=== PATIENT | male | born 1965 | race Caucasian/White ===

== ENCOUNTER 2017-07-04 10:11 | Inpatient (IN) | payer MEDICARE ==
[2017-07-04 10:51] LABS: #Eosinphils 0.1 thou/uL (0.0-0.7); #Lymphocytes 1.5 thou/uL (1.20-3.40); #Monocytes 0.6 thou/uL (0.11-0.59); #Neutrophils 11.1 thou/uL (1.40-6.50); %Basophils 0.2 % (0.0-1.0); %Eosinophils 1.1 % (0.0-10.0); %Lymphocytes 11.5 % (21.0-51.0); %Monocytes 4.5 % (0.0-10.0); Hematocrit 50.7 % (42.0-52.0); Mean Platelet Volume 8.4 fL (7.4-10.4); Red Blood Cell (RBC) Count 5.67 mill/uL (4.70-6.10); White Blood Cell (WBC) Count 13.4 thou/uL (4.8-10.8)
[2017-07-04 11:08] LABS: ALT (SGPT) 54 U/L (8-55); AST (SGOT) 42 U/L (5-34); Alkaline Phosphatase 114 U/L (40-150); Anion Gap 17 mmol/L (10-20); BUN (Urea Nitrogen) 12 mg/dL (8.4-25.7); Bilirubin, Total 0.7 mg/dL (0.2-1.2); Calc. Creatinine Clearance 0 mL/min (70-130); Calcium 9.2 mg/dL (7.8-10.44); Carbon Dioxide 21 mmol/L (22-29); Chloride 100 mmol/L (98-107); Estimated GFR-MDRD 76; Globulin 3.2 g/dL (2.4-3.5); Protein, Total 7.3 g/dL (6.0-8.3)
--- NOTE | 2017-07-04 11:14 | RAD ---
SINGLE VIEW OF THE CHEST: COMPARISON: 08/18/16. HISTORY: Productive cough and difficulty breathing. FINDINGS: A single view of the chest shows a normal-size cardiomediastinal silhouette. Increased interstitial lung markings are present. There is no evidence of consolidation, mass, or pleural effusion. Surg ical clips are seen at the right cervicothoracic junction. IMPRESSION: No evidence of acute cardiopulmonary disease. POS: [facility]
[2017-07-04] MEDS ORDERED: methylPREDNISolone Sod Succ/PF 125 MG/2 ML VIAL ONE (12:59)
[2017-07-04] MEDS ORDERED: ISOVUE-370 76%-LOCM 1 ML ONE (14:22)
--- NOTE | 2017-07-04 14:50 | CT ---
CT ARTERIOGRAM CHEST WITH IV CONTRAST AND 3D MIP IMAGING: HISTORY: Dyspnea. COMPARISON: 08/18/16. FINDINGS: There is good contrast opacification of pulmonary arteries with normal branching of the great vessel s from the aortic arch. Old bilateral rib fractures are again demonstrated. There are scattered ti ny nonspecific subpleural nodules within each lung that have developed since the prior study. No so lid nodules are greater than 3 mm greatest diameter. Mild scarring is present at the right lung bas e. No mediastinal adenopathy is visible. Azygous fissure is again demonstrated. Within the partia lly visualized upper abdomen, tiny low-density lesion along the lateral margin of the body of the le ft adrenal gland is stable. Diverticulum projecting posteriorly from the stomach is also unchanged in appearance. IMPRESSION: 1. No CT evidence of pulmonary embolus. 2. Interval development of multiple scattered tiny nonspecific subpleural parenchymal nodules. Ple ase consider followup CT chest in 6 months to evaluate for stability. POS: [facility]
[2017-07-04] MEDS ORDERED: Gabapentin 300 MG CAP PO SCH (15:15)
[2017-07-04 15:28] LABS: Troponin I Less than 0.010 ng/mL (< 0.028)
[2017-07-04] MEDS ORDERED: Azithromycin 500 MG VIAL ONE (15:44)
[2017-07-04 16:51] LABS: Troponin I Less than 0.010 ng/mL (< 0.028)
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
[2017-07-04] MEDS ORDERED: Ondansetron HCl/PF 4 MG/2 ML Vial IVP PRN ×2 (18:31→18:50)
[2017-07-04] MEDS ORDERED: Acetaminophen 325 MG TAB PO PRN (18:50)
[2017-07-04] MEDS ORDERED: Ondansetron ODT 4 MG TAB SL PRN (18:50)
[2017-07-04 19:04] LABS: Troponin I Less than 0.010 ng/mL (< 0.028)
[2017-07-04] MEDS ORDERED: guaiFENesin ER 600 MG TAB PO SCH ×2 (21:00→22:00)
[2017-07-04] MEDS ORDERED: Dextrose 50% Abboject 50 ML SYRINGE SLOW IVP PRN (21:24)
[2017-07-04] MEDS ORDERED: Dextrose 5% in Water 1,000 ML IV PRN ×2 (21:24→21:47)
[2017-07-04] MEDS ORDERED: Insulin Detemir 100 UNITS/ML 40 UNITS in Pre-Filled Syringe 1 EACH SC SCH ×2 (21:30→22:00)
[2017-07-04] MEDS ORDERED: Lorazepam 0.5 MG TAB PO SCH ×2 (21:30→21:45)
[2017-07-04] MEDS ORDERED: Albuterol Sulfate 2.5 mg/3 ml Neb NEB PRN (21:46)
[2017-07-04] MEDS ORDERED: Insulin Regular 300 UNITS/3 ML VIAL SC PRN ×2 (21:47)
[2017-07-04] MEDS ORDERED: Dextrose 50% Abboject 50 ML SYRINGE IVP PRN (21:47)
[2017-07-04 21:54] VITALS: BMI 35.7
[2017-07-04] MEDS: Nicotine 21 MG PATCH TOP SCH (22:17)
[2017-07-05] MEDS: methylPREDNISolone Sod Succ/PF 125 MG/2 ML VIAL IVP SCH ×2 (00:19→00:20)
[2017-07-05] MEDS: Albuterol Sulfate 2.5 mg/3 ml Neb NEB PRN (01:34)
[2017-07-05 05:14] LABS: #Basophils 0.1 thou/uL (0.0-0.2); #Eosinphils 0.1 thou/uL (0.0-0.7); #Monocytes 0.3 thou/uL (0.11-0.59); %Basophils 0.6 % (0.0-1.0); %Eosinophils 0.3 % (0.0-10.0); %Lymphocytes 6.2 % (21.0-51.0); %Monocytes 1.9 % (0.0-10.0); Mean Platelet Volume 8.9 fL (7.4-10.4); Red Blood Cell (RBC) Count 5.44 mill/uL (4.70-6.10); White Blood Cell (WBC) Count 15.4 thou/uL (4.8-10.8)
[2017-07-05] MEDS: Insulin Regular 300 UNITS/3 ML VIAL SC PRN ×4 (05:28→20:42)
[2017-07-05 05:29] LABS: Anion Gap 19 mmol/L (10-20); BUN (Urea Nitrogen) 17 mg/dL (8.4-25.7); Calc. Creatinine Clearance 119 mL/min (70-130); Calcium 10.1 mg/dL (7.8-10.44); Carbon Dioxide 17 mmol/L (22-29); Chloride 99 mmol/L (98-107); Estimated GFR-MDRD 63; Magnesium 1.9 mg/dL (1.6-2.6)
[2017-07-05] MEDS ORDERED: Non-Formulary Item 1 EACH (Metformin Hcl [Metformin Hcl] 1,000 MG) PO SCH (08:00)
[2017-07-05] MEDS: Aspirin 81 mg Enteric Coated Tablet PO SCH (08:53)
[2017-07-05] MEDS: guaiFENesin ER 600 MG TAB PO SCH ×2 (08:53→20:40)
[2017-07-05] MEDS: Gabapentin 300 MG CAP PO SCH ×2 (08:53→14:37)
[2017-07-05] MEDS: Ascorbic Acid 500 mg Chewable Tablet PO SCH (08:54)
[2017-07-05] MEDS: Enoxaparin Sodium 40 MG/0.4 ML SYRINGE SC SCH (08:55)
[2017-07-05] MEDS ORDERED: Non-Formulary Item 1 EACH (Budesonide-Formoterol [Symbicort 160-4.5] 2 PUFF) INH SCH (09:00)
--- NOTE | 2017-07-05 09:25 | RAD ---
TWO VIEWS CHEST: Comparison: 08-20-16 History: Fever, sepsis. COPD exacerbation. FINDINGS: Two views of the chest shows a normal sized cardiomediastinal silhouette. There is opacity in the ri ght lung base which likely represents a pleural effusion and adjacent atelectasis. Surgical clips ar e seen at the right cervicothoracic junction. IMPRESSION: Small right pleural effusion with adjacent atelectasis. POS: [facility]
[2017-07-05] MEDS: Insulin Detemir 100 UNITS/ML 50 UNITS in Pre-Filled Syringe 1 EACH SC SCH ×2 (10:39→20:41)
--- NOTE | 2017-07-05 13:30 | PDOC.PN ---
- Subjective Encounter Start Date: 07/05/17 Encounter Start Time: 09:30 Subjective: breathing better, but still has sob - Objective MAR Reviewed: Yes Vital Signs & Weight: Vital Signs (12 hours) Temp Pulse Resp BP BP Pulse Ox 07/05/17 11:34 97.5 F L 109 H 18 145/76 H 95 07/05/17 08:54 111 H 150/78 H 07/05/17 07:42 97.6 F 111 H 16 150/78 H 95 07/05/17 05:39 98.2 F 113 H 20 147/90 H 94 L 07/05/17 01:52 98.0 F 115 H 18 117/75 91 L 07/05/17 01:34 115 H 18 91 L Weight Weight 263 lb 7.238 oz Result Diagrams: 07/05/17 04:22 07/05/17 04:22 Additional Labs: Accuchecks 07/05/17 07/05/17 07/04/17 11:36 03:51 20:37 POC Glucose 311 H 419 H 502 H Phys Exam - Physical Examination HEENT: PERRLA, moist MMs Neck: no JVD, supple Respiratory: no rales, wheezing present Cardiovascular: RRR, no significant murmur, no rub Gastrointestinal: soft, non-tender, positive bowel sounds Musculoskeletal: no edema, pulses present Neurological: non-focal, moves all 4 limbs Psychiatric: A&O x 3 Dx/Plan (1) COPD (chronic obstructive pulmonary disease) Status: Acute Qualifiers: COPD type: COPD with acute exacerbation (2) Acute respiratory failure with hypoxia Code(s): J96.01 - ACUTE RESPIRATORY FAILURE WITH HYPOXIA Status: Resolved (3) DM type 2 (diabetes mellitus, type 2) Status: Chronic Qualifiers: Diabetes mellitus complication status: with hyperglycemia Diabetes mellitus adjunct faculty for medical terminology insulin use: with halfway use Qualified Code(s): E11.65 - Type 2 diabetes mellitus with hyperglycemia; Z79.4 - snf (current) use of insulin (4) HTN (hypertension) Code(s): I10 - ESSENTIAL (PRIMARY) HYPERTENSION Status: Chronic Qualifiers: Hypertension type: essential hypertension (5) Obesity Code(s): E66.9 - OBESITY, UNSPECIFIED Status: Chronic Qualifiers: Body mass index: BMI 35.0-35.9 - Plan is on solumedrol and duoneb -: empiric levaquin -: on home dose of levemir with metformin -: will rapidly taper steroids with uncontrolled dm -: ekg shows sinus tach * . Review of Systems - Medications/Allergies Allergies/Adverse Reactions: Allergies Allergy/AdvReac Type Severity Reaction Status Date / Time lisinopril Allergy Severe angioedema Verified 08/19/16 03:17 Medications: Current Medications Albuterol Sulfate (Ventolin) 2.5 mg NEB Q2H PRN PRN Reason: Wheezing Last Admin: 07/05/17 01:34 Dose: 2.5 mg Albuterol/Ipratropium (Duoneb) 3 ml NEB [id number] [facility] Amlodipine Besylate (Norvasc) 5 mg PO DAILY [facility] Last Admin: 07/05/17 08:54 Dose: 5 mg Ascorbic Acid (Vitamin C) 500 mg PO DAILY [facility] Last Admin: 07/05/17 08:54 Dose: 500 mg Aspirin (Ecotrin) 81 mg PO DAILY [facility] Last Admin: 07/05/17 08:53 Dose: 81 mg Dextrose/Water (Dextrose 50%) 25 gm SLOW IVP PRN PRN PRN Reason: Hypoglycemia Enoxaparin Sodium (Lovenox) 40 mg SC 0900 [facility] Last Admin: 07/05/17 08:55 Dose: 40 mg Gabapentin (Neurontin) 600 mg PO TID [facility] Last Admin: 07/05/17 08:53 Dose: 600 mg Glucagon (Glucagon) 1 mg IM PRN PRN PRN Reason: Hypoglycemia Guaifenesin (Mucinex) 1,200 mg PO Q12HR [facility] Last Admin: 07/05/17 08:53 Dose: 1,200 mg Levofloxacin 750 mg/ Device 150 mls @ 100 mls/hr IVPB Q24HR [facility] Last Admin: 07/05/17 00:53 Dose: 150 mls Dextrose/Water (D5w) 1,000 mls @ 0 mls/hr IV .Q0M PRN; As Directed PRN Reason: Hypoglycemia Insulin Detemir 50 units/ (Miscellaneous Medication) 0.5 mls @ 0 mls/hr SC BID [facility] Last Admin: 07/05/17 10:39 Dose: 0.5 mls Insulin Human Regular (Humulin R) 0 units SC .MODERATE SLIDING SC PRN PRN Reason: Moderate Correctional Scale Last Admin: 07/05/17 12:35 Dose: 8 unit Insulin Human Regular (Humulin R) 0 units SC .BEDTIME SLIDING SC PRN PRN Reason: Bedtime Correctional Scale Last Admin: 07/05/17 05:28 Dose: 10 unit Lorazepam (Ativan) 1 mg PO HS [facility] Metformin HCl (Glucophage) 1,000 mg PO BID-WM [facility] Last Admin: 07/05/17 08:54 Dose: 1,000 mg Methylprednisolone Sodium Succinate (Solu-Medrol) 20 mg IVP Q8HR [facility] Metoprolol Succinate (Toprol Xl) 25 mg PO DAILY [facility] Last Admin: 07/05/17 08:54 Dose: 25 mg Mometasone Furoate/Formoterol Fumar (Dulera 200 Mcg/5 Mcg Inhaler) 2 puff INH BID-RT [facility] Nicotine (Nicoderm Patch) 21 mg TOP Q24HR [facility] Last Admin: 07/04/17 22:17 Dose: 21 mg Ondansetron HCl (Zofran) 4 mg IVP Q6H PRN PRN Reason: Nausea/Vomiting Sodium Chloride (Flush - Normal Saline) 10 ml IVF Q12HR [facility] Last Admin: 07/05/17 08:55 Dose: 10 ml Sodium Chloride (Flush - Normal Saline) 10 ml IVF PRN PRN PRN Reason: Saline Flush
[2017-07-05] MEDS: Mometasone/Formoterol 120 PUFF INHALER INH SCH (19:19)
[2017-07-05] MEDS: Nicotine 21 MG PATCH TOP SCH (20:39)
[2017-07-05] MEDS: Lorazepam 1 MG TAB PO SCH (20:40)
[2017-07-05] MEDS: Gabapentin 400 MG CAP PO SCH (20:40)
[2017-07-05] MEDS ORDERED: ALPRAZolam 0.25 MG TAB PO SCH (23:15)
[2017-07-06] MEDS: Insulin Regular 300 UNITS/3 ML VIAL SC PRN ×4 (05:46→20:48)
[2017-07-06] MEDS: Mometasone/Formoterol 120 PUFF INHALER INH SCH ×2 (05:49→19:45)
[2017-07-06] MEDS ORDERED: predniSONE 20 MG TAB PO SCH (08:30)
[2017-07-06] MEDS: Aspirin 81 mg Enteric Coated Tablet PO SCH (10:57)
[2017-07-06] MEDS: Ascorbic Acid 500 mg Chewable Tablet PO SCH (10:58)
[2017-07-06] MEDS: Gabapentin 300 MG CAP PO SCH ×2 (10:58→17:06)
[2017-07-06] MEDS: Enoxaparin Sodium 40 MG/0.4 ML SYRINGE SC SCH (10:59)
[2017-07-06] MEDS: guaiFENesin ER 600 MG TAB PO SCH ×2 (10:59→20:47)
[2017-07-06] MEDS: Insulin Detemir 100 UNITS/ML 50 UNITS in Pre-Filled Syringe 1 EACH SC SCH ×2 (11:04→20:47)
--- NOTE | 2017-07-06 15:29 | PDOC.PN ---
- Subjective Encounter Start Date: 07/06/17 Encounter Start Time: 11:00 Subjective: breathing better - Objective MAR Reviewed: Yes Vital Signs & Weight: Vital Signs (12 hours) Temp Pulse Resp BP Pulse Ox 07/06/17 13:29 102 H 18 94 L 07/06/17 11:43 97.9 F 107 H 16 113/60 07/06/17 09:43 98 20 94 L 07/06/17 08:00 97.5 F L 98 20 07/06/17 07:41 97.5 F L 98 18 151/71 H 95 07/06/17 05:49 101 H 18 94 L 07/06/17 05:48 101 H 18 94 L Weight Weight 263 lb 7.238 oz I&O: 07/05/17 07/06/17 07/07/17 06:59 06:59 06:59 Intake Total 1240 Output Total 350 Balance 890 Result Diagrams: 07/05/17 04:22 07/05/17 04:22 Additional Labs: Accuchecks 07/06/17 07/06/17 07/05/17 11:43 05:31 20:40 POC Glucose 317 H 272 H 389 H 07/05/17 16:51 POC Glucose 373 H Phys Exam - Physical Examination HEENT: PERRLA, moist MMs Neck: no JVD, supple Respiratory: no wheezing, no rales rhonhci++ Cardiovascular: RRR, no significant murmur Gastrointestinal: soft, non-tender, positive bowel sounds Musculoskeletal: no edema, pulses present Neurological: non-focal, moves all 4 limbs Psychiatric: A&O x 3 Dx/Plan (1) COPD (chronic obstructive pulmonary disease) Status: Acute Qualifiers: COPD type: COPD with acute exacerbation (2) Acute respiratory failure with hypoxia Code(s): J96.01 - ACUTE RESPIRATORY FAILURE WITH HYPOXIA Status: Resolved (3) DM type 2 (diabetes mellitus, type 2) Status: Chronic Qualifiers: Diabetes mellitus complication status: with hyperglycemia Diabetes mellitus intermediate insulin use: with rat exterminator use Qualified Code(s): E11.65 - Type 2 diabetes mellitus with hyperglycemia; Z79.4 - nursing home (current) use of insulin (4) HTN (hypertension) Code(s): I10 - ESSENTIAL (PRIMARY) HYPERTENSION Status: Chronic Qualifiers: Hypertension type: essential hypertension (5) Obesity Code(s): E66.9 - OBESITY, UNSPECIFIED Status: Chronic Qualifiers: Body mass index: BMI 35.0-35.9 - Plan 1/2 blood cs staph likely contaminant, will await full cs -: is on prednisone, duonebs and empiric levaquin -: echo was done today, await results -: to amb in hallway as tolerated -: copd flare up is slowly resolving * . Review of Systems - Medications/Allergies Allergies/Adverse Reactions: Allergies Allergy/AdvReac Type Severity Reaction Status Date / Time lisinopril Allergy Severe angioedema Verified 08/19/16 03:17 Medications: Current Medications Albuterol Sulfate (Ventolin) 2.5 mg NEB Q2H PRN PRN Reason: Wheezing Last Admin: 07/05/17 01:34 Dose: 2.5 mg Albuterol/Ipratropium (Duoneb) 3 ml NEB [id number] [facility] Last Admin: 07/06/17 13:29 Dose: 3 ml Amlodipine Besylate (Norvasc) 5 mg PO DAILY [facility] Last Admin: 07/06/17 10:58 Dose: 5 mg Ascorbic Acid (Vitamin C) 500 mg PO DAILY [facility] Last Admin: 07/06/17 10:58 Dose: 500 mg Aspirin (Ecotrin) 81 mg PO DAILY [facility] Last Admin: 07/06/17 10:57 Dose: 81 mg Dextrose/Water (Dextrose 50%) 25 gm SLOW IVP PRN PRN PRN Reason: Hypoglycemia Enoxaparin Sodium (Lovenox) 40 mg SC 0900 [facility] Last Admin: 07/06/17 10:59 Dose: 40 mg Gabapentin (Neurontin) 1,200 mg PO HS [facility] Last Admin: 07/05/17 20:40 Dose: 1,200 mg Gabapentin (Neurontin) 600 mg PO 0900,1500 [facility] Last Admin: 07/06/17 10:58 Dose: 600 mg Glucagon (Glucagon) 1 mg IM PRN PRN PRN Reason: Hypoglycemia Guaifenesin (Mucinex) 1,200 mg PO Q12HR [facility] Last Admin: 07/06/17 10:59 Dose: 1,200 mg Levofloxacin 750 mg/ Device 150 mls @ 100 mls/hr IVPB Q24HR [facility] Last Admin: 07/06/17 00:02 Dose: 150 mls Dextrose/Water (D5w) 1,000 mls @ 0 mls/hr IV .Q0M PRN; As Directed PRN Reason: Hypoglycemia Insulin Detemir 50 units/ (Miscellaneous Medication) 0.5 mls @ 0 mls/hr SC BID [facility] Last Admin: 07/06/17 11:04 Dose: 0.5 mls Insulin Human Regular (Humulin R) 0 units SC .MODERATE SLIDING SC PRN PRN Reason: Moderate Correctional Scale Last Admin: 07/06/17 13:30 Dose: 8 unit Insulin Human Regular (Humulin R) 0 units SC .BEDTIME SLIDING SC PRN PRN Reason: Bedtime Correctional Scale Last Admin: 07/05/17 20:42 Dose: 5 unit Lorazepam (Ativan) 1 mg PO HS [facility] Last Admin: 07/05/17 20:40 Dose: 1 mg Metformin HCl (Glucophage) 1,000 mg PO BID-[facility] Last Admin: 07/06/17 10:57 Dose: 1,000 mg Metoprolol Succinate (Toprol Xl) 25 mg PO DAILY [facility] Last Admin: 07/06/17 10:57 Dose: 25 mg Mometasone Furoate/Formoterol Fumar (Dulera 200 Mcg/5 Mcg Inhaler) 2 puff INH BID-RT [facility] Last Admin: 07/06/17 05:49 Dose: 2 puff Nicotine (Nicoderm Patch) 21 mg TOP Q24HR [facility] Last Admin: 07/05/17 20:39 Dose: Not Given Ondansetron HCl (Zofran) 4 mg IVP Q6H PRN PRN Reason: Nausea/Vomiting Prednisone (Prednisone) 40 mg PO QAM-WM [facility] Sodium Chloride (Flush - Normal Saline) 10 ml IVF Q12HR [facility] Last Admin: 07/05/17 20:41 Dose: 10 ml Sodium Chloride (Flush - Normal Saline) 10 ml IVF PRN PRN PRN Reason: Saline Flush
[2017-07-06] MEDS: Nicotine 21 MG PATCH TOP SCH (19:33)
[2017-07-06] MEDS: Lorazepam 1 MG TAB PO SCH (20:47)
[2017-07-06] MEDS: Gabapentin 400 MG CAP PO SCH (20:47)
[2017-07-07] MEDS: Insulin Regular 300 UNITS/3 ML VIAL SC PRN ×3 (05:02→17:21)
[2017-07-07] MEDS: Mometasone/Formoterol 120 PUFF INHALER INH SCH ×2 (06:22→18:56)
[2017-07-07] MEDS ORDERED: predniSONE 20 MG TAB PO SCH (08:00)
[2017-07-07] MEDS: Ascorbic Acid 500 mg Chewable Tablet PO SCH (08:10)
[2017-07-07] MEDS: Gabapentin 300 MG CAP PO SCH ×2 (08:11→16:34)
[2017-07-07] MEDS: Aspirin 81 mg Enteric Coated Tablet PO SCH (08:11)
[2017-07-07] MEDS: Enoxaparin Sodium 40 MG/0.4 ML SYRINGE SC SCH (08:12)
[2017-07-07] MEDS: guaiFENesin ER 600 MG TAB PO SCH ×2 (08:12→19:39)
[2017-07-07] MEDS: Insulin Detemir 100 UNITS/ML 50 UNITS in Pre-Filled Syringe 1 EACH SC SCH ×2 (08:20→19:40)
--- NOTE | 2017-07-07 09:05 | EKG ---
Test Reason : PREOP Blood Pressure : / mmHG Vent. Rate : 095 BPM Atrial Rate : 095 BPM P-R Int : 168 ms QRS Dur : 094 ms QT Int : 358 ms P-R-T Axes : 059 040 031 degrees QTc Int : 449 ms Normal sinus rhythm Normal ECG When compared with ECG of 04-JUL-2017 15:24, (Unconfirmed) Nonspecific T wave abnormality now evident in Inferior leads Confirmed by ANAID SYLVESTER ([id number]) on 07/07/2017 9:04:48 AM Referred By: SON Confirmed By:ANAID SYLVESTER
--- NOTE | 2017-07-07 15:48 | PDOC.PN ---
- Subjective Encounter Start Date: 07/07/17 Encounter Start Time: 10:10 Subjective: breathing better, still has some wheezing off and on -: no chest pain or palp - Objective MAR Reviewed: Yes Vital Signs & Weight: Vital Signs (12 hours) Temp Pulse Resp BP Pulse Ox 07/07/17 14:24 107 H 24 H 07/07/17 10:04 102 H 16 07/07/17 08:59 98.3 F 107 H 20 148/87 H 93 L 07/07/17 08:11 102 H 07/07/17 08:00 98.3 F 107 H 20 93 L 07/07/17 06:22 102 H 16 07/07/17 06:15 91 L 07/07/17 06:12 102 H 16 07/07/17 04:48 101 H 93 L Weight Weight 263 lb 7.238 oz I&O: 07/06/17 07/07/17 07/08/17 06:59 06:59 06:59 Intake Total 1240 960 Output Total 350 2500 Balance 890 -2500 960 Result Diagrams: 07/05/17 04:22 07/05/17 04:22 Additional Labs: Accuchecks 07/07/17 07/07/17 07/06/17 11:16 04:47 20:33 POC Glucose 199 H 192 H 302 H 07/06/17 16:17 POC Glucose 451 H Phys Exam - Physical Examination HEENT: PERRLA, moist MMs Neck: no JVD, supple Respiratory: no rales, wheezing present Cardiovascular: RRR, no significant murmur Gastrointestinal: soft, non-tender, positive bowel sounds Musculoskeletal: no edema, pulses present Neurological: non-focal, moves all 4 limbs Psychiatric: A&O x 3 Dx/Plan (1) COPD (chronic obstructive pulmonary disease) Status: Acute Qualifiers: COPD type: COPD with acute exacerbation (2) Acute respiratory failure with hypoxia Code(s): J96.01 - ACUTE RESPIRATORY FAILURE WITH HYPOXIA Status: Resolved (3) DM type 2 (diabetes mellitus, type 2) Status: Chronic Qualifiers: Diabetes mellitus complication status: with hyperglycemia Diabetes mellitus long term acute care registered nurse insulin use: with usp use Qualified Code(s): E11.65 - Type 2 diabetes mellitus with hyperglycemia; Z79.4 - terminal makeup operator (current) use of insulin (4) HTN (hypertension) Code(s): I10 - ESSENTIAL (PRIMARY) HYPERTENSION Status: Chronic Qualifiers: Hypertension type: essential hypertension (5) Obesity Code(s): E66.9 - OBESITY, UNSPECIFIED Status: Chronic Qualifiers: Body mass index: BMI 35.0-35.9 - Plan is slowly improving -: possible dc plan in am -: reduce steroids, dm uncontrolled sec to steroids -: oob to chair and mobilize with prosthesis -: echo shows good EF * . Review of Systems - Medications/Allergies Allergies/Adverse Reactions: Allergies Allergy/AdvReac Type Severity Reaction Status Date / Time lisinopril Allergy Severe angioedema Verified 08/19/16 03:17 Medications: Current Medications Albuterol Sulfate (Ventolin) 2.5 mg NEB Q2H PRN PRN Reason: Wheezing Last Admin: 07/05/17 01:34 Dose: 2.5 mg Albuterol/Ipratropium (Duoneb) 3 ml NEB [id number] [facility] Last Admin: 07/07/17 14:24 Dose: 3 ml Amlodipine Besylate (Norvasc) 5 mg PO DAILY [facility] Last Admin: 07/07/17 08:11 Dose: 5 mg Ascorbic Acid (Vitamin C) 500 mg PO DAILY [facility] Last Admin: 07/07/17 08:10 Dose: 500 mg Aspirin (Ecotrin) 81 mg PO DAILY [facility] Last Admin: 07/07/17 08:11 Dose: 81 mg Dextrose/Water (Dextrose 50%) 25 gm SLOW IVP PRN PRN PRN Reason: Hypoglycemia Enoxaparin Sodium (Lovenox) 40 mg SC 0900 [facility] Last Admin: 07/07/17 08:12 Dose: 40 mg Gabapentin (Neurontin) 1,200 mg PO HS [facility] Last Admin: 07/06/17 20:47 Dose: 1,200 mg Gabapentin (Neurontin) 600 mg PO 0900,1500 [facility] Last Admin: 07/07/17 08:11 Dose: 600 mg Glucagon (Glucagon) 1 mg IM PRN PRN PRN Reason: Hypoglycemia Guaifenesin (Mucinex) 1,200 mg PO Q12HR [facility] Last Admin: 07/07/17 08:12 Dose: 1,200 mg Dextrose/Water (D5w) 1,000 mls @ 0 mls/hr IV .Q0M PRN; As Directed PRN Reason: Hypoglycemia Insulin Detemir 50 units/ (Miscellaneous Medication) 0.5 mls @ 0 mls/hr SC BID [facility] Last Admin: 07/07/17 08:20 Dose: 0.5 mls Insulin Human Regular (Humulin R) 0 units SC .MODERATE SLIDING SC PRN PRN Reason: Moderate Correctional Scale Last Admin: 07/07/17 13:09 Dose: 2 unit Insulin Human Regular (Humulin R) 0 units SC .BEDTIME SLIDING SC PRN PRN Reason: Bedtime Correctional Scale Last Admin: 07/06/17 20:48 Dose: 4 unit Levofloxacin (Levaquin) 500 mg PO 0600 [facility] Lorazepam (Ativan) 1 mg PO HS [facility] Last Admin: 07/06/17 20:47 Dose: 1 mg Metformin HCl (Glucophage) 1,000 mg PO BID-WM [facility] Last Admin: 07/07/17 08:11 Dose: 1,000 mg Metoprolol Succinate (Toprol Xl) 25 mg PO DAILY [facility] Last Admin: 07/07/17 08:11 Dose: 25 mg Mometasone Furoate/Formoterol Fumar (Dulera 200 Mcg/5 Mcg Inhaler) 2 puff INH BID-RT [facility] Last Admin: 07/07/17 06:22 Dose: 2 puff Nicotine (Nicoderm Patch) 21 mg TOP Q24HR [facility] Last Admin: 07/06/17 19:33 Dose: Not Given Ondansetron HCl (Zofran) 4 mg IVP Q6H PRN PRN Reason: Nausea/Vomiting Prednisone (Prednisone) 20 mg PO QAM-WM [facility] Sodium Chloride (Flush - Normal Saline) 10 ml IVF Q12HR [facility] Last Admin: 07/07/17 08:12 Dose: 10 ml Sodium Chloride (Flush - Normal Saline) 10 ml IVF PRN PRN PRN Reason: Saline Flush
[2017-07-07] MEDS ORDERED: Senokot 8.6 MG TAB PO PRN (17:21)
[2017-07-07] MEDS ORDERED: Milk Of Magnesia 30 ML UDCUP PO PRN (17:21)
[2017-07-07] MEDS: Lorazepam 1 MG TAB PO SCH (19:39)
[2017-07-07] MEDS: Gabapentin 400 MG CAP PO SCH (19:39)
[2017-07-07] MEDS: Nicotine 21 MG PATCH TOP SCH (19:41)
[2017-07-07] MEDS ORDERED: PROVENTIL INHALER 6.7 G (200 INHALATIONS) INH PRN (19:58)
[2017-07-07] MEDS: Albuterol Sulfate 2.5 mg/3 ml Neb NEB PRN (23:41)
[2017-07-08] MEDS: Insulin Regular 300 UNITS/3 ML VIAL SC PRN ×2 (05:32→15:59)
[2017-07-08] MEDS: Mometasone/Formoterol 120 PUFF INHALER INH SCH ×2 (06:31→18:35)
[2017-07-08] MEDS: Aspirin 81 mg Enteric Coated Tablet PO SCH (08:49)
[2017-07-08] MEDS: guaiFENesin ER 600 MG TAB PO SCH ×2 (08:49→21:08)
[2017-07-08] MEDS: predniSONE 20 MG TAB PO SCH (08:49)
[2017-07-08] MEDS: Gabapentin 300 MG CAP PO SCH ×2 (08:49→16:01)
[2017-07-08] MEDS: Ascorbic Acid 500 mg Chewable Tablet PO SCH (08:50)
[2017-07-08] MEDS: Insulin Detemir 100 UNITS/ML 50 UNITS in Pre-Filled Syringe 1 EACH SC SCH ×2 (08:50→21:08)
[2017-07-08] MEDS: Enoxaparin Sodium 40 MG/0.4 ML SYRINGE SC SCH (08:50)
--- NOTE | 2017-07-08 14:54 | PDOC.PN ---
- Subjective Encounter Start Date: 07/08/17 Encounter Start Time: 10:10 Subjective: breathing better - Objective MAR Reviewed: Yes Vital Signs & Weight: Vital Signs (12 hours) Temp Pulse Resp BP BP Pulse Ox 07/08/17 14:47 96 20 92 L 07/08/17 08:49 94 125/79 07/08/17 08:00 98.1 F 94 22 H 125/79 92 L 07/08/17 06:29 102 H 20 92 L Weight Weight 263 lb 7.238 oz I&O: 07/07/17 07/08/17 07/09/17 06:59 06:59 06:59 Intake Total 2940 Output Total 2500 1800 Balance -2500 1140 Result Diagrams: 07/05/17 04:22 07/05/17 04:22 Additional Labs: Accuchecks 07/08/17 07/08/17 07/07/17 10:57 04:19 19:47 POC Glucose 181 H 197 H 314 H 07/07/17 16:58 POC Glucose 355 H Phys Exam - Physical Examination HEENT: PERRLA, moist MMs Neck: no JVD, supple Respiratory: no wheezing, no rales rhonchi+ Cardiovascular: RRR, no significant murmur Gastrointestinal: soft, non-tender, positive bowel sounds Musculoskeletal: no edema, pulses present Neurological: non-focal, moves all 4 limbs Psychiatric: A&O x 3 Dx/Plan (1) COPD (chronic obstructive pulmonary disease) Status: Acute Qualifiers: COPD type: COPD with acute exacerbation (2) Acute respiratory failure with hypoxia Code(s): J96.01 - ACUTE RESPIRATORY FAILURE WITH HYPOXIA Status: Resolved (3) DM type 2 (diabetes mellitus, type 2) Status: Chronic Qualifiers: Diabetes mellitus complication status: with hyperglycemia Diabetes mellitus terminal gauger insulin use: with half-way use Qualified Code(s): E11.65 - Type 2 diabetes mellitus with hyperglycemia; Z79.4 - continuous churn buttermaker (current) use of insulin (4) HTN (hypertension) Code(s): I10 - ESSENTIAL (PRIMARY) HYPERTENSION Status: Chronic Qualifiers: Hypertension type: essential hypertension (5) Obesity Code(s): E66.9 - OBESITY, UNSPECIFIED Status: Chronic Qualifiers: Body mass index: BMI 35.0-35.9 - Plan on duonebs, steroids and empiric antibiotics -: dc pt home in am -: he is amb with his prosthesis * . Review of Systems - Medications/Allergies Allergies/Adverse Reactions: Allergies Allergy/AdvReac Type Severity Reaction Status Date / Time lisinopril Allergy Severe angioedema Verified 08/19/16 03:17 Medications: Current Medications Albuterol Sulfate (Ventolin) 2.5 mg NEB Q2H PRN PRN Reason: Wheezing Last Admin: 07/07/17 23:41 Dose: 2.5 mg Albuterol Sulfate (Proventil Hfa) 2 puff INH Q2H PRN PRN Reason: SOB or Anxiety Albuterol/Ipratropium (Duoneb) 3 ml NEB [id number] [facility] Last Admin: 07/08/17 14:47 Dose: 3 ml Amlodipine Besylate (Norvasc) 5 mg PO DAILY [facility] Last Admin: 07/08/17 08:49 Dose: 5 mg Ascorbic Acid (Vitamin C) 500 mg PO DAILY [facility] Last Admin: 07/08/17 08:50 Dose: 500 mg Aspirin (Ecotrin) 81 mg PO DAILY [facility] Last Admin: 07/08/17 08:49 Dose: 81 mg Dextrose/Water (Dextrose 50%) 25 gm SLOW IVP PRN PRN PRN Reason: Hypoglycemia Enoxaparin Sodium (Lovenox) 40 mg SC 0900 [facility] Last Admin: 07/08/17 08:50 Dose: 40 mg Gabapentin (Neurontin) 1,200 mg PO HS [facility] Last Admin: 07/07/17 19:39 Dose: 1,200 mg Gabapentin (Neurontin) 600 mg PO 0900,1500 [facility] Last Admin: 07/08/17 08:49 Dose: 600 mg Glucagon (Glucagon) 1 mg IM PRN PRN PRN Reason: Hypoglycemia Guaifenesin (Mucinex) 1,200 mg PO Q12HR [facility] Last Admin: 07/08/17 08:49 Dose: 1,200 mg Dextrose/Water (D5w) 1,000 mls @ 0 mls/hr IV .Q0M PRN; As Directed PRN Reason: Hypoglycemia Insulin Detemir 50 units/ (Miscellaneous Medication) 0.5 mls @ 0 mls/hr SC BID [facility] Last Admin: 07/08/17 08:50 Dose: 0.5 mls Insulin Human Regular (Humulin R) 0 units SC .MODERATE SLIDING SC PRN PRN Reason: Moderate Correctional Scale Last Admin: 07/08/17 05:32 Dose: 2 unit Insulin Human Regular (Humulin R) 0 units SC .BEDTIME SLIDING SC PRN PRN Reason: Bedtime Correctional Scale Last Admin: 07/06/17 20:48 Dose: 4 unit Levofloxacin (Levaquin) 500 mg PO 0600 [facility] Last Admin: 07/08/17 05:31 Dose: 500 mg Lorazepam (Ativan) 1 mg PO HS [facility] Last Admin: 07/07/17 19:39 Dose: 1 mg Magnesium Hydroxide (Milk Of Magnesium) 30 ml PO DAILYPRN PRN PRN Reason: Constipation Metformin HCl (Glucophage) 1,000 mg PO BID-WM [facility] Last Admin: 07/08/17 08:49 Dose: 1,000 mg Metoprolol Succinate (Toprol Xl) 25 mg PO DAILY [facility] Last Admin: 07/08/17 08:49 Dose: 25 mg Mometasone Furoate/Formoterol Fumar (Dulera 200 Mcg/5 Mcg Inhaler) 2 puff INH BID-RT [facility] Last Admin: 07/08/17 06:31 Dose: 2 puff Nicotine (Nicoderm Patch) 21 mg TOP Q24HR [facility] Last Admin: 07/07/17 19:41 Dose: Not Given Ondansetron HCl (Zofran) 4 mg IVP Q6H PRN PRN Reason: Nausea/Vomiting Prednisone (Prednisone) 20 mg PO QAM-WM [facility] Last Admin: 07/08/17 08:49 Dose: 20 mg Senna (Senokot) 2 tab PO HS PRN PRN Reason: Constipation Sodium Chloride (Flush - Normal Saline) 10 ml IVF Q12HR [facility] Last Admin: 07/08/17 08:56 Dose: 10 ml Sodium Chloride (Flush - Normal Saline) 10 ml IVF PRN PRN PRN Reason: Saline Flush
[2017-07-08] MEDS: Lorazepam 1 MG TAB PO SCH (21:08)
[2017-07-08] MEDS: Gabapentin 400 MG CAP PO SCH (21:08)
[2017-07-08] MEDS: Nicotine 21 MG PATCH TOP SCH (21:09)
[2017-07-09] MEDS: Mometasone/Formoterol 120 PUFF INHALER INH SCH ×2 (06:43→18:26)
[2017-07-09] MEDS: Aspirin 81 mg Enteric Coated Tablet PO SCH (07:49)
[2017-07-09] MEDS: guaiFENesin ER 600 MG TAB PO SCH ×2 (07:49→21:27)
[2017-07-09] MEDS: Ascorbic Acid 500 mg Chewable Tablet PO SCH (07:49)
[2017-07-09] MEDS: Gabapentin 300 MG CAP PO SCH ×2 (07:50→15:12)
[2017-07-09] MEDS: predniSONE 20 MG TAB PO SCH (07:50)
[2017-07-09] MEDS: Enoxaparin Sodium 40 MG/0.4 ML SYRINGE SC SCH (07:51)
[2017-07-09] MEDS: Insulin Detemir 100 UNITS/ML 50 UNITS in Pre-Filled Syringe 1 EACH SC SCH ×2 (08:36→21:28)
--- NOTE | 2017-07-09 10:39 | PDOC.PN ---
- Subjective Encounter Start Date: 07/09/17 Encounter Start Time: 07:25 Subjective: still feels he is not ready to go home -: says had a wheezing attack this morning - Objective MAR Reviewed: Yes Vital Signs & Weight: Vital Signs (12 hours) Temp Pulse Resp BP BP BP Pulse Ox 07/09/17 10:31 98 22 H 93 L 07/09/17 08:00 98.1 F 99 16 93 L 07/09/17 07:59 98.1 F 99 16 170/77 H 07/09/17 07:50 99 170/77 H 07/09/17 04:05 98.3 F 89 20 136/79 93 L 07/09/17 00:49 97.6 F 93 22 H 155/83 H 92 L Weight Weight 263 lb 7.238 oz I&O: 07/08/17 07/09/17 07/10/17 06:59 06:59 06:59 Intake Total 2940 1650 Output Total 1800 550 Balance 1140 1100 Result Diagrams: 07/05/17 04:22 07/05/17 04:22 Additional Labs: Accuchecks 07/09/17 07/08/17 07/08/17 05:09 20:00 15:58 POC Glucose 125 H 254 H 258 H 07/08/17 10:57 POC Glucose 181 H Phys Exam - Physical Examination HEENT: PERRLA, moist MMs Neck: no JVD, supple Respiratory: no rales rhonchi+ Cardiovascular: RRR, no rub Gastrointestinal: soft, non-tender, positive bowel sounds Musculoskeletal: no edema, pulses present Neurological: non-focal, moves all 4 limbs Psychiatric: A&O x 3 Dx/Plan (1) COPD (chronic obstructive pulmonary disease) Status: Acute Qualifiers: COPD type: COPD with acute exacerbation (2) Acute respiratory failure with hypoxia Code(s): J96.01 - ACUTE RESPIRATORY FAILURE WITH HYPOXIA Status: Resolved (3) DM type 2 (diabetes mellitus, type 2) Status: Chronic Qualifiers: Diabetes mellitus complication status: with hyperglycemia Diabetes mellitus custodial insulin use: with custodial use Qualified Code(s): E11.65 - Type 2 diabetes mellitus with hyperglycemia; Z79.4 - rat exterminator (current) use of insulin (4) HTN (hypertension) Code(s): I10 - ESSENTIAL (PRIMARY) HYPERTENSION Status: Chronic Qualifiers: Hypertension type: essential hypertension (5) Obesity Code(s): E66.9 - OBESITY, UNSPECIFIED Status: Chronic Qualifiers: Body mass index: BMI 35.0-35.9 - Plan continue duonebs, steroids -: empiric antibiotics -: dc plan in am home -: will need nebulizer for home use -: is seen going outside for smoking, counselled reg same * . Review of Systems - Medications/Allergies Allergies/Adverse Reactions: Allergies Allergy/AdvReac Type Severity Reaction Status Date / Time lisinopril Allergy Severe angioedema Verified 08/19/16 03:17 Medications: Current Medications Albuterol Sulfate (Ventolin) 2.5 mg NEB Q2H PRN PRN Reason: Wheezing Last Admin: 07/07/17 23:41 Dose: 2.5 mg Albuterol Sulfate (Proventil Hfa) 2 puff INH Q2H PRN PRN Reason: SOB or Anxiety Albuterol/Ipratropium (Duoneb) 3 ml NEB [id number] [facility] Last Admin: 07/09/17 10:31 Dose: 3 ml Amlodipine Besylate (Norvasc) 5 mg PO DAILY [facility] Last Admin: 07/09/17 07:50 Dose: 5 mg Ascorbic Acid (Vitamin C) 500 mg PO DAILY [facility] Last Admin: 07/09/17 07:49 Dose: 500 mg Aspirin (Ecotrin) 81 mg PO DAILY [facility] Last Admin: 07/09/17 07:49 Dose: 81 mg Dextrose/Water (Dextrose 50%) 25 gm SLOW IVP PRN PRN PRN Reason: Hypoglycemia Enoxaparin Sodium (Lovenox) 40 mg SC 0900 [facility] Last Admin: 07/09/17 07:51 Dose: 40 mg Gabapentin (Neurontin) 1,200 mg PO HS [facility] Last Admin: 07/08/17 21:08 Dose: 1,200 mg Gabapentin (Neurontin) 600 mg PO 0900,1500 [facility] Last Admin: 07/09/17 07:50 Dose: 600 mg Glucagon (Glucagon) 1 mg IM PRN PRN PRN Reason: Hypoglycemia Guaifenesin (Mucinex) 1,200 mg PO Q12HR [facility] Last Admin: 07/09/17 07:49 Dose: 1,200 mg Dextrose/Water (D5w) 1,000 mls @ 0 mls/hr IV .Q0M PRN; As Directed PRN Reason: Hypoglycemia Insulin Detemir 50 units/ (Miscellaneous Medication) 0.5 mls @ 0 mls/hr SC BID [facility] Last Admin: 07/09/17 08:36 Dose: 0.5 mls Insulin Human Regular (Humulin R) 0 units SC .MODERATE SLIDING SC PRN PRN Reason: Moderate Correctional Scale Last Admin: 07/08/17 15:59 Dose: 6 unit Insulin Human Regular (Humulin R) 0 units SC .BEDTIME SLIDING SC PRN PRN Reason: Bedtime Correctional Scale Last Admin: 07/06/17 20:48 Dose: 4 unit Levofloxacin (Levaquin) 500 mg PO 0600 [facility] Last Admin: 07/09/17 05:17 Dose: 500 mg Lorazepam (Ativan) 1 mg PO HS [facility] Last Admin: 07/08/17 21:08 Dose: 1 mg Magnesium Hydroxide (Milk Of Magnesium) 30 ml PO DAILYPRN PRN PRN Reason: Constipation Metformin HCl (Glucophage) 1,000 mg PO BID-[facility] Last Admin: 07/09/17 07:49 Dose: 1,000 mg Metoprolol Succinate (Toprol Xl) 25 mg PO DAILY [facility] Last Admin: 07/09/17 07:50 Dose: 25 mg Mometasone Furoate/Formoterol Fumar (Dulera 200 Mcg/5 Mcg Inhaler) 2 puff INH BID-RT [facility] Last Admin: 07/09/17 06:43 Dose: Not Given Nicotine (Nicoderm Patch) 21 mg TOP Q24HR [facility] Last Admin: 07/08/17 21:09 Dose: Not Given Ondansetron HCl (Zofran) 4 mg IVP Q6H PRN PRN Reason: Nausea/Vomiting Prednisone (Prednisone) 20 mg PO QAM-WM [facility] Last Admin: 07/09/17 07:50 Dose: 20 mg Senna (Senokot) 2 tab PO HS PRN PRN Reason: Constipation Sodium Chloride (Flush - Normal Saline) 10 ml IVF Q12HR [facility] Last Admin: 07/09/17 07:51 Dose: Not Given Sodium Chloride (Flush - Normal Saline) 10 ml IVF PRN PRN PRN Reason: Saline Flush
[2017-07-09] MEDS: Insulin Regular 300 UNITS/3 ML VIAL SC PRN ×2 (11:56→16:48)
[2017-07-09] MEDS: Nicotine 21 MG PATCH TOP SCH (21:26)
[2017-07-09] MEDS: Gabapentin 400 MG CAP PO SCH (21:26)
[2017-07-09] MEDS: Lorazepam 1 MG TAB PO SCH (21:27)
[2017-07-10] MEDS: Insulin Regular 300 UNITS/3 ML VIAL SC PRN ×4 (05:24→21:02)
[2017-07-10] MEDS: Mometasone/Formoterol 120 PUFF INHALER INH SCH ×2 (07:20→18:39)
[2017-07-10] MEDS: Ascorbic Acid 500 mg Chewable Tablet PO SCH (09:04)
[2017-07-10] MEDS: Aspirin 81 mg Enteric Coated Tablet PO SCH (09:04)
[2017-07-10] MEDS: guaiFENesin ER 600 MG TAB PO SCH ×2 (09:04→21:00)
[2017-07-10] MEDS: Gabapentin 300 MG CAP PO SCH ×2 (09:05→15:28)
[2017-07-10] MEDS: Insulin Detemir 100 UNITS/ML 50 UNITS in Pre-Filled Syringe 1 EACH SC SCH ×2 (09:05→21:00)
[2017-07-10] MEDS: predniSONE 20 MG TAB PO SCH (09:05)
[2017-07-10] MEDS: Enoxaparin Sodium 40 MG/0.4 ML SYRINGE SC SCH (09:05)
--- NOTE | 2017-07-10 10:59 | PDOC.PN ---
- Subjective Encounter Start Date: 07/10/17 Encounter Start Time: 09:20 -: old records requested/rev Patient seen and examined. No new complaints. No overnight events, does not feel normal, has cough, dyspnea - Objective MAR Reviewed: Yes Vital Signs & Weight: Vital Signs (12 hours) Temp Pulse Resp BP BP Pulse Ox 07/10/17 09:04 100 129/80 07/10/17 08:00 97.9 F 100 16 94 L 07/10/17 07:22 92 L 07/10/17 07:10 97.9 F 100 16 129/80 94 L 07/10/17 06:37 95 16 92 L 07/10/17 02:05 90 20 91 L 07/09/17 23:27 84 20 92 L Weight Weight 263 lb 7.238 oz I&O: 07/09/17 07/10/17 07/11/17 06:59 06:59 06:59 Intake Total 1650 Output Total 550 Balance 1100 Result Diagrams: 07/05/17 04:22 07/05/17 04:22 Additional Labs: Accuchecks 07/10/17 07/09/17 07/09/17 05:18 20:19 16:06 POC Glucose 317 H 193 H 265 H 07/09/17 11:06 POC Glucose 228 H Phys Exam - Physical Examination Constitutional: NAD HEENT: PERRLA, moist MMs, sclera anicteric Neck: no JVD, supple Respiratory: no rales, wheezing present Cardiovascular: RRR, no significant murmur, no rub Gastrointestinal: soft, non-tender, no distention, positive bowel sounds Musculoskeletal: no edema, pulses present left BKA Neurological: non-focal, normal sensation Psychiatric: normal affect, A&O x 3 Skin: no rash, normal turgor Dx/Plan (1) Acute respiratory failure with hypoxia Code(s): J96.01 - ACUTE RESPIRATORY FAILURE WITH HYPOXIA Status: Acute (2) COPD exacerbation Code(s): J44.1 - CHRONIC OBSTRUCTIVE PULMONARY DISEASE W (ACUTE) EXACERBATION Status: Acute (3) Hx of BKA Code(s): Z89.519 - ACQUIRED ABSENCE OF UNSPECIFIED LEG BELOW KNEE Status: Chronic Qualifiers: Laterality: left Qualified Code(s): Z89.512 - Acquired absence of left leg below knee (4) HTN (hypertension) Code(s): I10 - ESSENTIAL (PRIMARY) HYPERTENSION Status: Chronic Qualifiers: Hypertension type: essential hypertension (5) Obesity Code(s): E66.9 - OBESITY, UNSPECIFIED Status: Chronic Qualifiers: Body mass index: BMI 35.0-35.9 (6) Tobacco abuse Code(s): Z72.0 - TOBACCO USE Status: Chronic (7) Obesity (BMI 30-39.9) Code(s): E66.9 - OBESITY, UNSPECIFIED Status: Chronic (8) DM type 2 (diabetes mellitus, type 2) Status: Chronic Qualifiers: Diabetes mellitus complication status: with hyperglycemia Diabetes mellitus senior living insulin use: with senior living use Qualified Code(s): E11.65 - Type 2 diabetes mellitus with hyperglycemia; Z79.4 - nursing home (current) use of insulin (9) Lactic acidosis Code(s): E87.2 - ACIDOSIS Status: Resolved - Plan cont current plan of care, continue antibiotics, respiratory therapy * continue current optimum medical therapy for COPD * wean off oxygen as needed * counselled to avoid smoking * medication reviewed as below * symptomatic treatment * possible discharge tomorrow, he does not comfortable to go home today. Review of Systems - Review of Systems Constitutional: negative: Fever, Chills, Sweats, Weakness, Malaise, Other Respiratory: Cough, Shortness of Breath, SOB with Excertion, Wheezing. negative : Dry, Hemoptysis, Pleuritic Pain, Sputum Cardiovascular: negative: Chest Pain, Palpitations, Orthopnea, Paroxysmal Noc. Dyspnea, Edema, Light Headedness, Other Gastrointestinal: negative: Nausea, Vomiting, Abdominal Pain, Diarrhea, Constipation, Melena, Hematochezia, Other Genitourinary: negative: Dysuria, Frequency, Incontinence, Hematuria, Retention , Other Musculoskeletal: negative: Neck Pain, Shoulder Pain, Arm Pain, Back Pain, Hand Pain, Leg Pain, Foot Pain, Other Skin: negative: Rash, Lesions, Sergey, Bruising, Other - Medications/Allergies Allergies/Adverse Reactions: Allergies Allergy/AdvReac Type Severity Reaction Status Date / Time lisinopril Allergy Severe angioedema Verified 08/19/16 03:17 Medications: Current Medications Albuterol Sulfate (Ventolin) 2.5 mg NEB Q2H PRN PRN Reason: Wheezing Last Admin: 07/07/17 23:41 Dose: 2.5 mg Albuterol Sulfate (Proventil Hfa) 2 puff INH Q2H PRN PRN Reason: SOB or Anxiety Albuterol/Ipratropium (Duoneb) 3 ml NEB [id number] [facility] Last Admin: 07/10/17 10:29 Dose: Not Given Amlodipine Besylate (Norvasc) 5 mg PO DAILY [facility] Last Admin: 07/10/17 09:04 Dose: 5 mg Ascorbic Acid (Vitamin C) 500 mg PO DAILY [facility] Last Admin: 07/10/17 09:04 Dose: 500 mg Aspirin (Ecotrin) 81 mg PO DAILY [facility] Last Admin: 07/10/17 09:04 Dose: 81 mg Dextrose/Water (Dextrose 50%) 25 gm SLOW IVP PRN PRN PRN Reason: Hypoglycemia Enoxaparin Sodium (Lovenox) 40 mg SC 0900 [facility] Last Admin: 07/10/17 09:05 Dose: 40 mg Gabapentin (Neurontin) 1,200 mg PO HS [facility] Last Admin: 07/09/17 21:26 Dose: 1,200 mg Gabapentin (Neurontin) 600 mg PO 0900,1500 [facility] Last Admin: 07/10/17 09:05 Dose: 600 mg Glucagon (Glucagon) 1 mg IM PRN PRN PRN Reason: Hypoglycemia Guaifenesin (Mucinex) 1,200 mg PO Q12HR [facility] Last Admin: 07/10/17 09:04 Dose: 1,200 mg Dextrose/Water (D5w) 1,000 mls @ 0 mls/hr IV .Q0M PRN; As Directed PRN Reason: Hypoglycemia Insulin Detemir 50 units/ (Miscellaneous Medication) 0.5 mls @ 0 mls/hr SC BID [facility] Last Admin: 07/10/17 09:05 Dose: 0.5 mls Insulin Human Regular (Humulin R) 0 units SC .MODERATE SLIDING SC PRN PRN Reason: Moderate Correctional Scale Last Admin: 07/10/17 05:24 Dose: 8 unit Insulin Human Regular (Humulin R) 0 units SC .BEDTIME SLIDING SC PRN PRN Reason: Bedtime Correctional Scale Last Admin: 07/06/17 20:48 Dose: 4 unit Levofloxacin (Levaquin) 500 mg PO 0600 [facility] Last Admin: 07/10/17 05:23 Dose: 500 mg Lorazepam (Ativan) 1 mg PO HS [facility] Last Admin: 07/09/17 21:27 Dose: 1 mg Magnesium Hydroxide (Milk Of Magnesium) 30 ml PO DAILYPRN PRN PRN Reason: Constipation Metformin HCl (Glucophage) 1,000 mg PO BID-[facility] Last Admin: 07/10/17 09:05 Dose: 1,000 mg Metoprolol Succinate (Toprol Xl) 25 mg PO DAILY [facility] Last Admin: 07/10/17 09:05 Dose: 25 mg Mometasone Furoate/Formoterol Fumar (Dulera 200 Mcg/5 Mcg Inhaler) 2 puff INH BID-RT [facility] Last Admin: 07/10/17 07:20 Dose: 2 puff Nicotine (Nicoderm Patch) 21 mg TOP Q24HR [facility] Last Admin: 07/09/17 21:26 Dose: Not Given Ondansetron HCl (Zofran) 4 mg IVP Q6H PRN PRN Reason: Nausea/Vomiting Prednisone (Prednisone) 20 mg PO QAM-WM [facility] Last Admin: 07/10/17 09:05 Dose: 20 mg Senna (Senokot) 2 tab PO HS PRN PRN Reason: Constipation Sodium Chloride (Flush - Normal Saline) 10 ml IVF Q12HR [facility] Last Admin: 07/10/17 08:44 Dose: Not Given Sodium Chloride (Flush - Normal Saline) 10 ml IVF PRN PRN PRN Reason: Saline Flush
[2017-07-10] MEDS: Lorazepam 1 MG TAB PO SCH (21:00)
[2017-07-10] MEDS: Gabapentin 400 MG CAP PO SCH (21:00)
[2017-07-10] MEDS: Nicotine 21 MG PATCH TOP SCH (21:01)
[2017-07-11] MEDS: Mometasone/Formoterol 120 PUFF INHALER INH SCH (06:53)
[2017-07-11 09:52] VITALS: BP 138/83; TEMP 98.2
[2017-07-11] MEDS: Ascorbic Acid 500 mg Chewable Tablet PO SCH (09:56)
[2017-07-11] MEDS: Aspirin 81 mg Enteric Coated Tablet PO SCH (09:56)
[2017-07-11] MEDS: Gabapentin 300 MG CAP PO SCH (09:56)
[2017-07-11] MEDS: guaiFENesin ER 600 MG TAB PO SCH (09:57)
[2017-07-11] MEDS: predniSONE 20 MG TAB PO SCH (09:58)
[2017-07-11] MEDS: Insulin Detemir 100 UNITS/ML 50 UNITS in Pre-Filled Syringe 1 EACH SC SCH (10:01)
[2017-07-11] MEDS: Enoxaparin Sodium 40 MG/0.4 ML SYRINGE SC SCH (10:01)
--- NOTE | 2017-07-11 10:53 | DIS ---
DATE OF ADMISSION: 07/04/2017 DATE OF DISCHARGE: 07/11/2017 PRIMARY CARE PHYSICIAN: Sherry Moncada D.O. DISCHARGE DISPOSITION: Home. PRIMARY DISCHARGE DIAGNOSES: 1. Acute respiratory failure with hypoxia, resolved. 2. Chronic obstructive pulmonary disease exacerbation. SECONDARY DISCHARGE DIAGNOSES: Left below knee amputation, obesity with body mass index 35, tobacco abuse disorder, diabetes type 2, and hypertension. PRIMARY PROCEDURE/OPERATION: None. RADIOLOGICAL INVESTIGATION: Chest x-ray normal. CT angio was negative for PE. Echocardiography sh owed diastolic dysfunction. SIGNIFICANT LABORATORY DATA: Hemoglobin 16.6, platelets 232. WBC 15.4, sodium 130, creatinine 1.20 , BNP 10.5. Cardiac enzymes negative. Blood culture negative. DISCHARGE MEDICATIONS: Ventolin HFA 2 puff q.6 hourly p.r.n., vitamin C 500 mg p.o. b.i.d., aspirin 81 mg p.o. daily, Symbicort 2 puffs inhalation b.i.d., gabapentin 600 mg t.i.d., Lantus 50 units burns bcu b.i.d., Levaquin 500 mg p.o. daily, Ativan 1 mg p.o. at bedtime, Toprol-XL 25 mg p.o. daily, aml odipine 5 mg p.o. daily, Mucinex 600 mg p.o. q.6 hourly, metformin 1000 mg p.o. b.i.d., prednisone 2 0 mg p.o. daily for three days, then 10 mg p.o. daily for three days, then 5 mg p.o. daily for 3 day s, and then stop. CONTRAINDICATIONS: None. CODE STATUS: FULL CODE. INPATIENT GRINDER WATCH PARTS: None. ALLERGIES: LISINOPRIL. DISCHARGE PLAN: Post hospital, the patient will follow up with primary care physician. HOSPITAL COURSE: A 51-year-old male with above-mentioned medical problem who was admitted by Dr. Fadi sood on 07/04/2017. Patient mainly came to the emergency room for increasing shortness of ravi th. This patient was found with COPD exacerbation. Initially in the emergency room, chest x-ray wa s unremarkable. CT angio was negative for PE. We did echocardiography during this admission which showed diastolic dysfunction. The patient was treated optimally for COPD with empiric steroid, empi la nena antibiotic therapy, DuoNeb, and Dulera. We also provided counseling to avoid smoking during thi s admission. With this therapy, patient's condition significantly improved to his baseline, he was not requiring any oxygen by the time of discharge. All new medication prescriptions given to him an d sent to his pharmacy. Rest of medication was continued as above. The patient seen and examined at bedside today. PHYSICAL EXAMINATION: VITAL SIGNS: Currently, temperature 98.2, pulse 93, respiratory rate 18, saturation 91% on room air , blood pressure 138/83. Weight 263 pounds. GENERAL: The patient is alert, awake, no acute distress. HEAD: Normocephalic, atraumatic. LUNGS: Clear to auscultation without any rhonchi or rales. CARDIAC: S1, S2 regular without any murmur. ABDOMEN: Soft and benign. EXTREMITIES: The patient does have left BKA. NEUROLOGIC: Nonfocal examination.
--- NOTE | 2017-07-11 11:59 | PDOC.PN ---
- Subjective Encounter Start Date: 07/11/17 Encounter Start Time: 10:20 Patient seen and examined. No new complaints. No overnight events - Objective MAR Reviewed: Yes Vital Signs & Weight: Vital Signs (12 hours) Temp Pulse Resp BP Pulse Ox 07/11/17 08:00 98.2 F 93 18 138/83 91 L 07/11/17 06:54 95 07/11/17 06:52 94 20 95 Weight Weight 263 lb 7.238 oz I&O: 07/10/17 07/11/17 07/12/17 06:59 06:59 06:59 Intake Total 970 Balance 970 Result Diagrams: 07/05/17 04:22 07/05/17 04:22 Additional Labs: Accuchecks 07/11/17 07/10/17 07/10/17 05:36 20:43 17:03 POC Glucose 151 H 292 H 315 H Phys Exam - Physical Examination Constitutional: NAD HEENT: PERRLA, moist MMs, sclera anicteric Neck: no JVD, supple Respiratory: no wheezing, no rales, no rhonchi Cardiovascular: RRR, no significant murmur, no rub Gastrointestinal: soft, non-tender, no distention, positive bowel sounds left BKA Neurological: non-focal, normal sensation Psychiatric: normal affect, A&O x 3 Skin: no rash, normal turgor Dx/Plan (1) COPD exacerbation Code(s): J44.1 - CHRONIC OBSTRUCTIVE PULMONARY DISEASE W (ACUTE) EXACERBATION Status: Acute (2) Hx of BKA Code(s): Z89.519 - ACQUIRED ABSENCE OF UNSPECIFIED LEG BELOW KNEE Status: Chronic Qualifiers: Laterality: left Qualified Code(s): Z89.512 - Acquired absence of left leg below knee (3) Acute respiratory failure with hypoxia Code(s): J96.01 - ACUTE RESPIRATORY FAILURE WITH HYPOXIA Status: Acute (4) HTN (hypertension) Code(s): I10 - ESSENTIAL (PRIMARY) HYPERTENSION Status: Chronic Qualifiers: Hypertension type: essential hypertension (5) Obesity Code(s): E66.9 - OBESITY, UNSPECIFIED Status: Chronic Qualifiers: Body mass index: BMI 35.0-35.9 (6) Tobacco abuse Code(s): Z72.0 - TOBACCO USE Status: Chronic - Plan cont current plan of care * medication reviewed as below * symptomatic treatment. * see discharge umangy. Review of Systems - Review of Systems ENT: negative: Ear Pain, Ear Discharge, Nose Pain, Nose Discharge, Nose Congestion, Mouth Pain, Mouth Swelling, Throat Pain, Throat Swelling, Other Respiratory: negative: Cough, Dry, Shortness of Breath, Hemoptysis, SOB with Excertion, Pleuritic Pain, Sputum, Wheezing Cardiovascular: negative: Chest Pain, Palpitations, Orthopnea, Paroxysmal Noc. Dyspnea, Edema, Light Headedness, Other Gastrointestinal: negative: Nausea, Vomiting, Abdominal Pain, Diarrhea, Constipation, Melena, Hematochezia, Other Genitourinary: negative: Dysuria, Frequency, Incontinence, Hematuria, Retention , Other Musculoskeletal: negative: Neck Pain, Shoulder Pain, Arm Pain, Back Pain, Hand Pain, Leg Pain, Foot Pain, Other - Medications/Allergies Allergies/Adverse Reactions: Allergies Allergy/AdvReac Type Severity Reaction Status Date / Time lisinopril Allergy Severe angioedema Verified 08/19/16 03:17 Medications: Current Medications Albuterol Sulfate (Ventolin) 2.5 mg NEB Q2H PRN PRN Reason: Wheezing Last Admin: 07/07/17 23:41 Dose: 2.5 mg Albuterol Sulfate (Proventil Hfa) 2 puff INH Q2H PRN PRN Reason: SOB or Anxiety Albuterol/Ipratropium (Duoneb) 3 ml NEB [id number] [facility] Last Admin: 07/11/17 10:18 Dose: Not Given Amlodipine Besylate (Norvasc) 5 mg PO DAILY [facility] Last Admin: 07/11/17 09:56 Dose: 5 mg Ascorbic Acid (Vitamin C) 500 mg PO DAILY [facility] Last Admin: 07/11/17 09:56 Dose: 500 mg Aspirin (Ecotrin) 81 mg PO DAILY [facility] Last Admin: 07/11/17 09:56 Dose: 81 mg Dextrose/Water (Dextrose 50%) 25 gm SLOW IVP PRN PRN PRN Reason: Hypoglycemia Enoxaparin Sodium (Lovenox) 40 mg SC 0900 [facility] Last Admin: 07/11/17 10:01 Dose: 40 mg Gabapentin (Neurontin) 1,200 mg PO HS [facility] Last Admin: 07/10/17 21:00 Dose: 1,200 mg Gabapentin (Neurontin) 600 mg PO 0900,1500 [facility] Last Admin: 07/11/17 09:56 Dose: 600 mg Glucagon (Glucagon) 1 mg IM PRN PRN PRN Reason: Hypoglycemia Guaifenesin (Mucinex) 1,200 mg PO Q12HR [facility] Last Admin: 07/11/17 09:57 Dose: 1,200 mg Dextrose/Water (D5w) 1,000 mls @ 0 mls/hr IV .Q0M PRN; As Directed PRN Reason: Hypoglycemia Insulin Detemir 50 units/ (Miscellaneous Medication) 0.5 mls @ 0 mls/hr SC BID [facility] Last Admin: 07/11/17 10:01 Dose: 0.5 mls Insulin Human Regular (Humulin R) 0 units SC .MODERATE SLIDING SC PRN PRN Reason: Moderate Correctional Scale Last Admin: 07/10/17 18:25 Dose: 8 unit Insulin Human Regular (Humulin R) 0 units SC .BEDTIME SLIDING SC PRN PRN Reason: Bedtime Correctional Scale Last Admin: 07/10/17 21:02 Dose: 3 unit Levofloxacin (Levaquin) 500 mg PO 0600 [facility] Last Admin: 07/11/17 05:29 Dose: 500 mg Lorazepam (Ativan) 1 mg PO HS [facility] Last Admin: 07/10/17 21:00 Dose: 1 mg Magnesium Hydroxide (Milk Of Magnesium) 30 ml PO DAILYPRN PRN PRN Reason: Constipation Metformin HCl (Glucophage) 1,000 mg PO BID-[facility] Last Admin: 07/11/17 10:00 Dose: 1,000 mg Metoprolol Succinate (Toprol Xl) 25 mg PO DAILY [facility] Last Admin: 07/11/17 09:57 Dose: 25 mg Mometasone Furoate/Formoterol Fumar (Dulera 200 Mcg/5 Mcg Inhaler) 2 puff INH BID-RT [facility] Last Admin: 07/11/17 06:53 Dose: 2 puff Nicotine (Nicoderm Patch) 21 mg TOP Q24HR [facility] Last Admin: 07/10/17 21:01 Dose: Not Given Ondansetron HCl (Zofran) 4 mg IVP Q6H PRN PRN Reason: Nausea/Vomiting Prednisone (Prednisone) 20 mg PO QAM-WM [facility] Last Admin: 07/11/17 09:58 Dose: 20 mg Senna (Senokot) 2 tab PO HS PRN PRN Reason: Constipation Sodium Chloride (Flush - Normal Saline) 10 ml IVF Q12HR [facility] Last Admin: 07/11/17 10:04 Dose: Not Given Sodium Chloride (Flush - Normal Saline) 10 ml IVF PRN PRN PRN Reason: Saline Flush
--- NOTE | 2017-07-14 17:24 | PQF ---
BROWN LOPEZ RADHA CARR [id number] CLINICAL DOCUMENTATION CLARIFICATION FORM: POST DISCHARGE PLEASE FAX RESPONSE BACK TO [phone] Addendum to original discharge summary date: ____ Late entry note date: __ DATE: 07/14/2017 ATTN: Peggy Mon MD The following CLINICAL INDICATORS - SIGNS / SYMPTOMS are present in the medical record: H & P pg. 3 Assessment and Plan: #4. Sepsis without septic shock: The patient had elevated white count, tachypnea, tachycardic on presentation, and a lacti acid of 4.0 RISKS: Acute respiratory failure Copd exc TREATMENTS: Empiric steroid and antibiotic Please provide a response below if a more specific term indicating a diagnosis and/or acuity level for this condition can be identified. Please exercise your independent, professional judgment in responding to the clarification form. Clinical indicators are provided at the top of this form for your review. For continuity of documentation, please document condition throughout progress notes and discharge summary. Thank you. Present on Admission:[ ] Yes[x ] No[ ] Unable to determine [ ] Sepsis (include causative agent if known) Due to: [ ] Device [ ] Implant [ ] Graft [ ] Infusion [ ] [ ] SIRS due to non-infectious process [ ] with organ dysfunction [ ] without organ dysfunction [ ] Severe sepsis with acute organ dysfunction of: (Examples: respiratory failure, encephalopathy, acute kidney failure, other) [ ] SIRS due to infection or infectious process [ ] with organ dysfunction [ ] without organ dysfunction [ ] Septic shock [ ] Sepsis related to a device (i.e. port, IV line, pacer / ICD leads, Lora, etc.) [x ] Does not apply to this patient [ ] Unable to determine [ ] Other diagnosis Definitions [facility] 2002: SIRS- clinical response to an insult, infection, or trauma that includes systemic inflammation as well as increased or decreased temp, increased pulse, respiration and white count. SEPSIS- SIRS due to infection without organ dysfunction. SEVERE SEPSIS- SIRS due to an infection that progress to organ dysfunction. SEPTIC SHOCK- circulatory failure associated with severe sepsis, and represents a type of acute organ dysfunction. _ Physician/Provider Signature Date Time (This form is maintained as a part of the permanent medical record) 2014 [email or web address] All Rights Reserved Obiorky Samuel [email or web address]
== END 2017-07-11 12:00 | disposition home or self-care (01) | DRG 871 ==
LOC: ERS 10:11 → ERHOLD 15:31 → T4-A 18:00
PROVIDERS: ADMIT Internal Medicine Infectious Disease; ATTEND Internal Medicine Infectious Disease
DX: A41.9 Sepsis, unspecified organism (principal); J96.01 Acute respiratory failure with hypoxia; E87.2 Acidosis; J44.1 Chronic obstructive pulmonary disease with (acute) exacerbation; E11.65 Type 2 diabetes mellitus with hyperglycemia; I10 Essential (primary) hypertension; G62.9 Polyneuropathy, unspecified; Z68.35 Body mass index [BMI] 35.0-35.9, adult; E66.9 Obesity, unspecified; F17.210 Nicotine dependence, cigarettes, uncomplicated; Z79.4 Long term (current) use of insulin; Z89.512 Acquired absence of left leg below knee; Z96.642 Presence of left artificial hip joint; Z88.8 Allergy status to other drugs, medicaments and biological substances
CPT/HCPCS: 36415; 36416; 71010; 71020; 71275; 80048; 80053; 82553; 83605; 83735; 83880; 84484; 85025; 87040; 93005; 93010; 93306; 94640; 94664; 94760; 96365; 96366; 96375; A4216; J0456; J1650; J1815; J1956; J2920; J2930; J7506; J7611; J7620

== ENCOUNTER 2017-08-15 13:09 | Inpatient (IN) | payer MEDICARE ==
[2017-08-15] MEDS ORDERED: Ketorolac Tromethamine 30 MG/ML VIAL ONE (15:18)
[2017-08-15] MEDS ORDERED: Clindamycin/D5W 900 mg/50 ml Premix Bag ONE (15:18)
--- NOTE | 2017-08-15 15:43 | RAD ---
PORTABLE CHEST 1 VIEW: Date: 08/15/17 Time: 1527 hours HISTORY: Fever. FINDINGS: Comparison made with exam of 07/05/17. There is continued elevation of the right hemidiaphragm. Blunting of the right costophrenic angle underwood s improved. Chronic changes in the lung alvarez are again seen. The heart size is stable. Surgical cl ips in the right upper chest are again seen. IMPRESSION: Interval improvement in the right pleural effusion since 07/05/17. POS: KIRTI
--- NOTE | 2017-08-15 15:44 | RAD ---
RIGHT HUMERUS 1 view: Date: 08/15/17 HISTORY: Evaluation of surgical wound, right arm pain. Right arm amputation 2 weeks ago. FINDINGS: There are changes of recent amputation at the level of the distal shaft of the right humerus. Skin s taples are present. No soft tissue air is identified. No bony destruction or erosion is identified. IMPRESSION: No radiographic evidence of osteomyelitis. POS: IESHA
[2017-08-15 15:45] LABS: #Basophils 0.1 thou/uL (0.0-0.2); #Eosinphils 0.2 thou/uL (0.0-0.7); #Lymphocytes 3.1 thou/uL (1.20-3.40); #Monocytes 0.8 thou/uL (0.11-0.59); #Neutrophils 9.2 thou/uL (1.40-6.50); %Basophils 0.4 % (0.0-1.0); %Eosinophils 1.2 % (0.0-10.0); %Monocytes 6.3 % (0.0-10.0); Hematocrit 50.8 % (42.0-52.0); Mean Platelet Volume 8.6 fL (7.4-10.4); Red Blood Cell (RBC) Count 5.66 mill/uL (4.70-6.10); White Blood Cell (WBC) Count 13.3 thou/uL (4.8-10.8)
[2017-08-15 16:00] LABS: Lactic Acid - Sepsis 3.7 mmol/L (0.5-2.2)
[2017-08-15 16:07] LABS: ALT (SGPT) 48 U/L (8-55); AST (SGOT) 45 U/L (5-34); Alkaline Phosphatase 109 U/L (40-150); Anion Gap 18 mmol/L (10-20); BUN (Urea Nitrogen) 20 mg/dL (8.4-25.7); Bilirubin, Total 0.3 mg/dL (0.2-1.2); Calc. Creatinine Clearance 0 mL/min (70-130); Carbon Dioxide 22 mmol/L (22-29); Chloride 100 mmol/L (98-107); Estimated GFR-MDRD 77; Globulin 3.8 g/dL (2.4-3.5); Protein, Total 7.7 g/dL (6.0-8.3)
[2017-08-15] MEDS ORDERED: MEROPENEM 1 GM/50 ML 1 GM in Premix Bag 1 BAG IVPB SCH (16:30)
[2017-08-15] MEDS ORDERED: Dextrose 50% Abboject 50 ML SYRINGE SLOW IVP PRN (17:17)
[2017-08-15] MEDS ORDERED: Dextrose 5% in Water 1,000 ML IV PRN (17:17)
[2017-08-15] MEDS ORDERED: Acetaminophen 650 MG Suppository PR PRN (17:17)
[2017-08-15] MEDS ORDERED: Acetaminophen 325 MG TAB PO PRN (17:17)
[2017-08-15 17:27] LABS: Bilirubin Negative (Negative); Blood, Urine Negative (Negative); Glucose, Urine (Dipstick) >=1000 mg/dL (Negative); Ketone, Urine Trace mg/dL (Negative); Nitrite Negative (Negative); Protein, Urine (Dipstick) 30 mg/dL (Neg-Trace); Urobilinogen 0.2 mg/dL (0.2-1.0)
[2017-08-15 17:29] LABS: Bacteria/HPF None Seen HPF (None Seen); Hyaline Casts/LPF 0-3 HYALINE CAST LPF (0-3 Hyaline); RBC/HPF 0-3 HPF (0-3); Squamous Epithelial None Seen HPF (0-3); WBC/HPF None Seen HPF (0-3)
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
[2017-08-15] MEDS ORDERED: PROVENTIL INHALER 6.7 G (200 INHALATIONS) INH PRN (21:45)
[2017-08-15] MEDS: Nicotine 21 MG PATCH TD SCH (21:46)
[2017-08-15] MEDS ORDERED: Insulin Detemir 100 UNITS/ML 50 UNITS in Pre-Filled Syringe 1 EACH SC SCH (22:00)
[2017-08-15] MEDS ORDERED: Meropenem 1 GM in Sodium Chloride 0.9% 100 ML IVPB SCH (22:00)
[2017-08-15] MEDS ORDERED: Lorazepam 1 MG TAB PO SCH (22:00)
[2017-08-15] MEDS ORDERED: Gabapentin 300 MG CAP PO SCH (22:00)
[2017-08-15] MEDS: Lorazepam 1 MG TAB PO SCH (22:06)
[2017-08-15] MEDS ORDERED: metFORMIN 500 MG TAB PO SCH (22:30)
[2017-08-15] MEDS: MEROPENEM 1 GM/50 ML 1 GM in Premix Bag 1 BAG IVPB SCH (22:35)
[2017-08-16] MEDS: Vancomycin HCl 1.75 GM in Sodium Chloride 0.9% 500 ML IVPB SCH ×2 (04:04→17:28)
[2017-08-16 04:49] VITALS: BMI 35.9
[2017-08-16] MEDS ORDERED: Vancomycin HCl 1 GM in Premix Bag 1 BAG IVPB SCH ×4 (05:00)
[2017-08-16 05:24] LABS: #Eosinphils 0.2 thou/uL (0.0-0.7); #Lymphocytes 2.6 thou/uL (1.20-3.40); #Monocytes 0.7 thou/uL (0.11-0.59); #Neutrophils 5.9 thou/uL (1.40-6.50); %Basophils 0.3 % (0.0-1.0); %Eosinophils 1.9 % (0.0-10.0); %Monocytes 7.3 % (0.0-10.0); Hematocrit 45.6 % (42.0-52.0); Mean Platelet Volume 8.3 fL (7.4-10.4); Red Blood Cell (RBC) Count 5.09 mill/uL (4.70-6.10); White Blood Cell (WBC) Count 9.4 thou/uL (4.8-10.8)
[2017-08-16] MEDS: MEROPENEM 1 GM/50 ML 1 GM in Premix Bag 1 BAG IVPB SCH (05:56)
[2017-08-16 06:00] LABS: Anion Gap 13 mmol/L (10-20); BUN (Urea Nitrogen) 17 mg/dL (8.4-25.7); Calc. Creatinine Clearance 184 mL/min (70-130); Calcium 8.7 mg/dL (7.8-10.44); Carbon Dioxide 24 mmol/L (22-29); Chloride 103 mmol/L (98-107); Estimated GFR-MDRD Greater than 90
[2017-08-16] MEDS: Aspirin 81 mg Enteric Coated Tablet PO SCH (08:47)
[2017-08-16] MEDS: Amlodipine 5 MG TAB PO SCH (08:47)
[2017-08-16] MEDS: metFORMIN 500 MG TAB PO SCH ×2 (08:47→17:29)
[2017-08-16] MEDS: Ascorbic Acid 500 mg Chewable Tablet PO SCH (08:48)
[2017-08-16] MEDS: Enoxaparin Sodium 40 MG/0.4 ML SYRINGE SC SCH (08:49)
[2017-08-16] MEDS ORDERED: Gabapentin 300 MG CAP PO SCH (09:00)
[2017-08-16] MEDS: Insulin Detemir 100 UNITS/ML 50 UNITS in Pre-Filled Syringe 1 EACH SC SCH ×2 (09:00→21:53)
[2017-08-16] MEDS ORDERED: FLU VACC QS2017-18 36 mo. & older 0.5 ML SYRINGE IM ONE (09:00)
[2017-08-16] MEDS ORDERED: Cefepime 2 GM in Sodium Chloride 0.9% 100 ML IVPB SCH (09:15)
[2017-08-16] MEDS: Clindamycin/D5W 900 MG in Premix Bag 1 BAG IVPB SCH ×2 (10:33→17:29)
[2017-08-16] MEDS: Cefepime 2 GM, Syringe 2.5 ML in Sterile Water 10 ML SLOW IVP SCH ×2 (10:47→21:54)
[2017-08-16] MEDS: Gabapentin 300 MG CAP PO SCH (13:36)
[2017-08-16] MEDS ORDERED: Clindamycin/D5W 900 MG in Premix Bag 1 BAG IVPB SCH (14:00)
--- NOTE | 2017-08-16 14:42 | PDOC.PN ---
- Subjective Encounter Start Date: 08/16/17 Encounter Start Time: 08:45 -: old records requested/rev PT seen and examined, chart reviewed in its entirety. I am assuming care of this patient, this is my first visit with this patient. Pt is about 10-11 days S/P Right transhumeral arm amputation in [place]. He presented with clear drainage, increased temps, and pain. Mets SIRS criteria, given Vanca dn merrem in the ER and admitted. Abx continued. overnight, no fever,s no n/V/D/C, no CP, no SOB, no marvin ein pain. drainage has stopped. filter tank tender and red. 10 point ROS performed and neg for all systems except as per HPI - Objective Resuscitation Status: full MAR Reviewed: Yes Vital Signs & Weight: Vital Signs (12 hours) Temp Pulse Resp BP BP Pulse Ox 08/16/17 12:00 98 F 73 20 137/77 96 08/16/17 09:02 97.8 F 71 18 139/83 99 08/16/17 08:47 71 139/83 08/16/17 04:00 97.6 F 82 18 171/88 H 93 L Weight Weight 265 lb 6.4 oz I&O: 08/15/17 08/16/17 08/17/17 06:59 06:59 06:59 Intake Total 1500 Output Total 600 Balance 900 Result Diagrams: 08/16/17 05:14 08/16/17 05:14 Additional Labs: Accuchecks 08/16/17 08/16/17 08/15/17 12:37 05:59 22:00 POC Glucose 130 H 157 H 243 H Radiology Reviewed by me: Yes EKG Reviewed by me: Yes Phys Exam - Physical Examination Constitutional: NAD HEENT: PERRLA, moist MMs, sclera anicteric, oral pharynx no lesions Neck: no nodes, no JVD, supple, full ROM Respiratory: no wheezing, no rales, no rhonchi, clear to auscultation bilateral Cardiovascular: RRR, no significant murmur, no rub Gastrointestinal: soft, non-tender, no distention, positive bowel sounds right UE amp site c/d/I, slightly red and tender. slight erysipelas Neurological: non-focal, normal sensation, moves all 4 limbs Lymphatic: no nodes Psychiatric: normal affect, A&O x 3 Skin: no rash, normal turgor, cap refill <2 seconds Dx/Plan (1) Postoperative wound cellulitis Code(s): T81.4XXA - INFECTION FOLLOWING A PROCEDURE, INITIAL ENCOUNTER Status : Acute Comment: wound red and warm, no fluctuanc.e Clinda for strep toxin inhibition for 72 hours, streamlne a little to Vanc and Cefepime. Doubt anaerobic or resistant GNR (2) COPD (chronic obstructive pulmonary disease) Status: Chronic Qualifiers: COPD type: emphysema Emphysema type: unspecified Qualified Code(s): J43.9 - Emphysema, unspecified (3) DM type 2 (diabetes mellitus, type 2) Status: Chronic Qualifiers: Diabetes mellitus complication status: with hyperglycemia Diabetes mellitus long distance operator insulin use: with long distance operator use Qualified Code(s): E11.65 - Type 2 diabetes mellitus with hyperglycemia; Z79.4 - MCFP (current) use of insulin (4) HTN (hypertension) Code(s): I10 - ESSENTIAL (PRIMARY) HYPERTENSION Status: Chronic Qualifiers: Hypertension type: essential hypertension (5) Hx of BKA Code(s): Z89.519 - ACQUIRED ABSENCE OF UNSPECIFIED LEG BELOW KNEE Status: Chronic Qualifiers: Laterality: left Qualified Code(s): Z89.512 - Acquired absence of left leg below knee (6) Tobacco abuse Code(s): Z72.0 - TOBACCO USE Status: Chronic Comment: ongoing, no intention of stopping - Plan cont current plan of care, continue antibiotics, PT/OT * .
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
[2017-08-16] MEDS: HumaLOG 300 UNITS/3 ML VIAL SC PRN (17:37)
[2017-08-16] MEDS: Mometasone/Formoterol 120 PUFF INHALER INH SCH (18:53)
[2017-08-16] MEDS: Nicotine 21 MG PATCH TD SCH (20:56)
[2017-08-16] MEDS: Gabapentin 400 MG CAP PO SCH (21:53)
[2017-08-16] MEDS: Lorazepam 1 MG TAB PO SCH ×2 (21:53→22:47)
[2017-08-17] MEDS: Clindamycin/D5W 900 MG in Premix Bag 1 BAG IVPB SCH ×3 (01:54→18:18)
[2017-08-17 04:13] LABS: #Basophils 0.1 thou/uL (0.0-0.2); #Eosinphils 0.3 thou/uL (0.0-0.7); #Lymphocytes 2.5 thou/uL (1.20-3.40); #Monocytes 0.6 thou/uL (0.11-0.59); #Neutrophils 6.7 thou/uL (1.40-6.50); %Basophils 0.7 % (0.0-1.0); %Eosinophils 2.8 % (0.0-10.0); %Lymphocytes 24.3 % (21.0-51.0); %Monocytes 5.8 % (0.0-10.0); Hematocrit 44.4 % (42.0-52.0); Mean Platelet Volume 8.3 fL (7.4-10.4); Red Blood Cell (RBC) Count 4.96 mill/uL (4.70-6.10); White Blood Cell (WBC) Count 10.1 thou/uL (4.8-10.8)
[2017-08-17 04:22] LABS: Vancomycin, Trough 9.8 ug/mL
[2017-08-17 04:25] LABS: Anion Gap 14 mmol/L (10-20); BUN (Urea Nitrogen) 12 mg/dL (8.4-25.7); Calc. Creatinine Clearance 182 mL/min (70-130); Calcium 8.9 mg/dL (7.8-10.44); Carbon Dioxide 22 mmol/L (22-29); Chloride 102 mmol/L (98-107); Estimated GFR-MDRD Greater than 90
[2017-08-17] MEDS: Vancomycin HCl 1.75 GM in Sodium Chloride 0.9% 500 ML IVPB SCH (05:07)
[2017-08-17] MEDS: Mometasone/Formoterol 120 PUFF INHALER INH SCH ×3 (07:23→18:13)
[2017-08-17] MEDS: Ascorbic Acid 500 mg Chewable Tablet PO SCH (08:08)
[2017-08-17] MEDS: Aspirin 81 mg Enteric Coated Tablet PO SCH (08:08)
[2017-08-17] MEDS: metFORMIN 500 MG TAB PO SCH ×2 (08:08→16:32)
[2017-08-17] MEDS: Gabapentin 300 MG CAP PO SCH ×2 (08:08→13:26)
[2017-08-17] MEDS: Amlodipine 5 MG TAB PO SCH (08:08)
[2017-08-17] MEDS: Enoxaparin Sodium 40 MG/0.4 ML SYRINGE SC SCH (08:09)
[2017-08-17] MEDS: Insulin Detemir 100 UNITS/ML 50 UNITS in Pre-Filled Syringe 1 EACH SC SCH ×2 (08:12→22:09)
[2017-08-17] MEDS: Cefepime 2 GM, Syringe 2.5 ML in Sterile Water 10 ML SLOW IVP SCH ×2 (11:20→22:11)
--- NOTE | 2017-08-17 11:46 | PDOC.PN ---
- Subjective Encounter Start Date: 08/17/17 Encounter Start Time: 10:45 PT seen and examined, noted reviewed. Denies F/C, no N/V/D/C, pain in stump improved. Seen by ID, recommendations reviewed. He and I are on the same page. Tolerating IV Vanc, Cefepime and Clinda, no rash or itching. Leobardo to be removed by nurses today. Drainage has slowed vastly. 10 point ROS performed and neg for all systems except as per HPI - Objective Resuscitation Status: FULL MAR Reviewed: Yes Vital Signs & Weight: Vital Signs (12 hours) Temp Pulse Resp BP BP Pulse Ox 08/17/17 08:08 68 154/87 H 08/17/17 07:33 97.5 F L 68 20 154/87 H 100 08/17/17 07:23 62 14 95 08/17/17 03:37 97.6 F 77 16 135/86 93 L Weight Weight 265 lb 6.4 oz I&O: 08/16/17 08/17/17 08/18/17 06:59 06:59 06:59 Intake Total 1500 1282.5 Output Total 600 1020 Balance 900 262.5 Result Diagrams: 08/17/17 04:00 08/17/17 04:00 Additional Labs: Accuchecks 08/17/17 08/16/17 08/16/17 05:11 20:09 17:31 POC Glucose 200 H 191 H 205 H 08/16/17 12:37 POC Glucose 130 H Radiology Reviewed by me: Yes EKG Reviewed by me: Yes Phys Exam - Physical Examination Constitutional: NAD HEENT: PERRLA, moist MMs, sclera anicteric, oral pharynx no lesions Neck: no nodes, no JVD, supple, full ROM Respiratory: no wheezing, no rales, no rhonchi, clear to auscultation bilateral Cardiovascular: RRR, no significant murmur, no rub Gastrointestinal: soft, non-tender, no distention, positive bowel sounds Musculoskeletal: no edema, pulses present Neurological: non-focal, normal sensation, moves all 4 limbs Lymphatic: no nodes Psychiatric: normal affect, A&O x 3 Skin: no rash, normal turgor, cap refill <2 seconds Deviation from normal: swelling at RUE stump stable, but redness improved, no active drainage Dx/Plan (1) Postoperative wound cellulitis Code(s): T81.4XXA - INFECTION FOLLOWING A PROCEDURE, INITIAL ENCOUNTER Status : Acute Comment: wound red and warm, no fluctuanc.e Clinda for strep toxin inhibition for 72 hours, streamlne a little to Vanc and Cefepime. Doubt anaerobic or resistant GNR (2) COPD (chronic obstructive pulmonary disease) Status: Chronic Qualifiers: COPD type: emphysema Emphysema type: unspecified Qualified Code(s): J43.9 - Emphysema, unspecified (3) DM type 2 (diabetes mellitus, type 2) Status: Chronic Qualifiers: Diabetes mellitus complication status: with hyperglycemia Diabetes mellitus terminal clerk insulin use: with intermediate use Qualified Code(s): E11.65 - Type 2 diabetes mellitus with hyperglycemia; Z79.4 - intermediate (current) use of insulin (4) HTN (hypertension) Code(s): I10 - ESSENTIAL (PRIMARY) HYPERTENSION Status: Chronic Qualifiers: Hypertension type: essential hypertension (5) Hx of BKA Code(s): Z89.519 - ACQUIRED ABSENCE OF UNSPECIFIED LEG BELOW KNEE Status: Chronic Qualifiers: Laterality: left Qualified Code(s): Z89.512 - Acquired absence of left leg below knee (6) Tobacco abuse Code(s): Z72.0 - TOBACCO USE Status: Chronic Comment: ongoing, no intention of stopping - Plan * .
--- NOTE | 2017-08-17 11:53 | PDOC.PN ---
- Subjective Encounter Start Date: 08/17/17 Encounter Start Time: 10:45 please see progress note dated today. this is a secodn note to outline assessment and plan - Objective Vital Signs & Weight: Vital Signs (12 hours) Temp Pulse Resp BP BP Pulse Ox 08/17/17 08:08 68 154/87 H 08/17/17 07:33 97.5 F L 68 20 154/87 H 100 08/17/17 07:23 62 14 95 08/17/17 03:37 97.6 F 77 16 135/86 93 L Weight Weight 265 lb 6.4 oz I&O: 08/16/17 08/17/17 08/18/17 06:59 06:59 06:59 Intake Total 1500 1282.5 Output Total 600 1020 Balance 900 262.5 Result Diagrams: 08/17/17 04:00 08/17/17 04:00 Additional Labs: Accuchecks 08/17/17 08/16/17 08/16/17 05:11 20:09 17:31 POC Glucose 200 H 191 H 205 H 08/16/17 12:37 POC Glucose 130 H Dx/Plan (1) Postoperative wound cellulitis Code(s): T81.4XXA - INFECTION FOLLOWING A PROCEDURE, INITIAL ENCOUNTER Status : Acute Comment: wound less red and less warm, no fluctuance, no drainage actively. Clinda X 2 more days for strep toxin inhibition for 72 hours, continue Vanc and Cefepime. Doubt anaerobic or resistant GNR (2) COPD (chronic obstructive pulmonary disease) Status: Chronic Qualifiers: COPD type: emphysema Emphysema type: unspecified Qualified Code(s): J43.9 - Emphysema, unspecified Comment: add nebs (3) DM type 2 (diabetes mellitus, type 2) Status: Chronic Qualifiers: Diabetes mellitus complication status: with hyperglycemia Diabetes mellitus long-term insulin use: with long-term use Qualified Code(s): E11.65 - Type 2 diabetes mellitus with hyperglycemia; Z79.4 - senior care (current) use of insulin (4) HTN (hypertension) Code(s): I10 - ESSENTIAL (PRIMARY) HYPERTENSION Status: Chronic Qualifiers: Hypertension type: essential hypertension (5) Hx of BKA Code(s): Z89.519 - ACQUIRED ABSENCE OF UNSPECIFIED LEG BELOW KNEE Status: Chronic Qualifiers: Laterality: left Qualified Code(s): Z89.512 - Acquired absence of left leg below knee (6) Tobacco abuse Code(s): Z72.0 - TOBACCO USE Status: Chronic Comment: ongoing, no intention of stopping - Plan cont current plan of care, continue antibiotics, PT/OT, DVT proph w/lovenox * .
[2017-08-17] MEDS ORDERED: traZODone HCl 50 MG TAB PO PRN (12:16)
[2017-08-17] MEDS: Vancomycin HCl 1.25 GM in Sodium Chloride 0.9% 250 ML 250 ML IVPB SCH (16:33)
[2017-08-17] MEDS: Gabapentin 400 MG CAP PO SCH (22:09)
[2017-08-17] MEDS: Lorazepam 1 MG TAB PO SCH (22:11)
[2017-08-17] MEDS: Nicotine 21 MG PATCH TD SCH (23:46)
[2017-08-18] MEDS: Vancomycin HCl 1.25 GM in Sodium Chloride 0.9% 250 ML 250 ML IVPB SCH ×2 (00:05→08:12)
[2017-08-18] MEDS: Clindamycin/D5W 900 MG in Premix Bag 1 BAG IVPB SCH ×2 (02:54→10:36)
[2017-08-18 04:16] LABS: #Basophils 0.1 thou/uL (0.0-0.2); #Eosinphils 0.3 thou/uL (0.0-0.7); #Lymphocytes 2.5 thou/uL (1.20-3.40); #Monocytes 0.7 thou/uL (0.11-0.59); #Neutrophils 6.4 thou/uL (1.40-6.50); %Basophils 0.6 % (0.0-1.0); %Eosinophils 2.9 % (0.0-10.0); %Monocytes 6.8 % (0.0-10.0); Hematocrit 51.2 % (42.0-52.0); Mean Platelet Volume 8.5 fL (7.4-10.4); Red Blood Cell (RBC) Count 5.68 mill/uL (4.70-6.10); White Blood Cell (WBC) Count 9.9 thou/uL (4.8-10.8)
[2017-08-18 04:43] LABS: Anion Gap 18 mmol/L (10-20); BUN (Urea Nitrogen) 11 mg/dL (8.4-25.7); Calc. Creatinine Clearance 171 mL/min (70-130); Calcium 9.3 mg/dL (7.8-10.44); Carbon Dioxide 20 mmol/L (22-29); Chloride 103 mmol/L (98-107); Estimated GFR-MDRD Greater than 90
[2017-08-18] MEDS: HumaLOG 300 UNITS/3 ML VIAL SC PRN (06:18)
[2017-08-18] MEDS: Gabapentin 300 MG CAP PO SCH ×2 (06:19→14:03)
[2017-08-18] MEDS: Mometasone/Formoterol 120 PUFF INHALER INH SCH (07:04)
[2017-08-18] MEDS: Insulin Detemir 100 UNITS/ML 50 UNITS in Pre-Filled Syringe 1 EACH SC SCH (08:05)
[2017-08-18] MEDS: Aspirin 81 mg Enteric Coated Tablet PO SCH (08:06)
[2017-08-18] MEDS: metFORMIN 500 MG TAB PO SCH (08:11)
[2017-08-18] MEDS: Ascorbic Acid 500 mg Chewable Tablet PO SCH (08:11)
[2017-08-18] MEDS: Amlodipine 5 MG TAB PO SCH (08:11)
[2017-08-18] MEDS: Enoxaparin Sodium 40 MG/0.4 ML SYRINGE SC SCH (08:13)
[2017-08-18] MEDS ORDERED: Amlodipine 5 MG TAB PO SCH (10:30)
[2017-08-18] MEDS: Cefepime 2 GM, Syringe 2.5 ML in Sterile Water 10 ML SLOW IVP SCH (11:30)
[2017-08-18 12:52] VITALS: BP 157/88; TEMP 97.8
--- NOTE | 2017-08-18 23:19 | DIS ---
DATE OF ADMISSION: 08/15/2017 DATE OF DISCHARGE: 08/18/2017 PRIMARY CARE PHYSICIAN: Sherry Moncada D.O. DISCHARGE DIAGNOSES: 1. Postoperative infection. 2. Cellulitis of the left humeral stump. 3. Chronic obstructive pulmonary disease without acute exacerbation. 4. Diabetes mellitus type 2 with long-term insulin use with hyperglycemia. 5. Essential hypertension. 6. Peripheral vascular disease with history of below-knee amputation. 7. Ongoing tobacco abuse. CONSULTATIONS: Dr. Darnell Lopez on 08/16/2017. PROCEDURES: None. HISTORY AND PHYSICAL: Mr. Owens is a pleasant 51-year-old gentleman who was hospitalized at our [facility] from 07/04/2017 to 07/11/2017 for acute respiratory failure and COPD exacerbation. 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 Over the few days prior to admission, he developed some pain in the surgical site that progressed wi th some clear to yellowish drainage and some redness and heat over the incisional site. He was seen by home health nurses in the emergency department and subsequently admitted to our service. HOSPITAL COURSE: The patient was seen and examined by Dr. Nitin Thomas on the evening of admission. He was started on IV antibiotics and diabetic care with hypoglycemic protocol. Infectious disease was consulted. He was continued initially on vancomycin and meropenem pending their recommendations . Overnight, he did well, he was afebrile, but he did feel hot. I took over the case on 08/16/2017. His antibiotics at that time were streamlined to vancomycin plus cefepime with clindamycin added in for a 72-hour of toxin inhibition. Dr. Lopez did see the patient in the afternoon, made no immediat e changes but did recommend Zyvox plus Cipro when ready for discharge. The patient received rishi sive wound care over the area from 08/16/2017 to 08/18/2017. His white blood cell count remained no rmal, he had no further fevers, has redness decreased and the tenderness improved. By 08/18/2017, h e was stable for discharge. He was transitioned to p.o. antibiotics and discharged home in stable c ondition with outpatient followup. PHYSICAL EXAMINATION: The patient was seen and examined on the day of discharge. Discharge plan and disposition were discussed with the patient face to face at the bedside. DISCHARGE MEDICATIONS: 1. Zyvox 600 mg p.o. b.i.d. for 10 more days. 2. Cipro 750 mg p.o. b.i.d. for 10 more days. Prescriptions were sent. 3. Norvasc increased to 10 mg p.o. daily. Prescription sent. 4. Metformin 1000 mg p.o. b.i.d. with meals. Prescription sent for 1-month supply. 5. Albuterol sulfate 2 puffs inhaled every 6 hours as needed. 6. Dulera 200/5 two puffs inhaled b.i.d. 7. Neurontin per his home dosing. He took 600 mg p.o. q.a.m. and q. afternoon and 1200 mg at bedti me. 8. Aspirin 81 mg a day. 9. Levemir 50 units subcutaneously b.i.d. 10. Vitamin C 500 mg daily. 11. Toprol-XL 25 mg daily. 12. Ativan 1 mg p.o. at bedtime. 13. Apple cider vinegar tablets 500 mg daily. FOLLOWUP APPOINTMENTS: 1. Primary care physician, Dr. Sherry Moncada, within a week. 2. The patient had an appointment in [place] for orthotic and stump hot roll inspector placement, but has deci ded to seek Orthotics care here. 3. Dr. Lopez per his clinic's availability. DISCHARGE DIET: Heart-healthy diabetic diet. DISCHARGE CONDITION: Stable. DISPOSITION: Will be discharged home via private vehicle. He is to continue home health care as needed. DISCHARGE INSTRUCTIONS: To return to the emergency department or call his primary care physician im mediately for fevers, worsening of his wound, or dehiscence or drainage.
[2017-08-19] MEDS ORDERED: Amlodipine 10 MG TAB PO SCH (09:00)
--- NOTE | 2017-08-23 08:38 | PQF ---
BROWN LOPEZ RADHA AMTA [id number] CLINICAL DOCUMENTATION CLARIFICATION FORM: POST DISCHARGE Addendum to original discharge summary date: ____ Late entry note date: __ BROWN LOPEZ [id number] RADHA MATA PLEASE DOCUMENT YOUR RESPONSE BELOW PLEASE FAX RESPONSE BACK TO [phone] YOUR INPUT IS NEEDED TO CORRECTLY CODE A DIAGNOSIS FOR YOUR PATIENT. DATE: 08/23/2017 ATTN: DR. MATA Please exercise your independent, professional judgment in responding to the clarification form. Clinical indicators are provided on the bottom of this form for your review Please check appropriate box(s) to clarify if the following diagnosis has been ruled in our ruled out: SEPSIS [ X ] Ruled in diagnosis [ ] Continue to treat [ X ] Resolved [ ] Ruled out diagnosis [ ] Cannot rule out diagnosis [ ] Other diagnosis [ ] Unable to determine In addition, please specify: Present on Admission (POA): [ ] Yes [ ] No [ ] Unable to determine For continuity of documentation, please document condition throughout progress notes and discharge summary. Thank You. CLINICAL INDICATORS - SIGNS / SYMPTOMS / LABS H&P under assessment and plan states: Sepsis: meets criteria for sepsis Discharge summary states: Postoperative infection, Cellulitis of the left humeral stump RISK FACTORS Postoperative infection Cellulitis of the left humeral stump TREATMENTS IV antibiotics (This form is maintained as a part of the permanent medical record) 2014 [employer]. All Rights Reserved [email or web address] [phone] [email or web address]
== END 2017-08-18 14:59 | disposition home health service (06) | DRG 862 ==
LOC: ERS 13:09 → ONC 17:46
PROVIDERS: ADMIT Internal Medicine; ATTEND Internal Medicine
DX: T81.4XXA Infection following a procedure, initial encounter (principal); A41.9 Sepsis, unspecified organism; L03.114 Cellulitis of left upper limb; E87.1 Hypo-osmolality and hyponatremia; E11.65 Type 2 diabetes mellitus with hyperglycemia; I10 Essential (primary) hypertension; Z89.211 Acquired absence of right upper limb below elbow; Z89.512 Acquired absence of left leg below knee; J43.9 Emphysema, unspecified; F17.210 Nicotine dependence, cigarettes, uncomplicated; I73.9 Peripheral vascular disease, unspecified; G62.9 Polyneuropathy, unspecified; Z79.4 Long term (current) use of insulin; F41.9 Anxiety disorder, unspecified; Z96.642 Presence of left artificial hip joint
CPT/HCPCS: 36415; 36416; 71010; 80048; 80053; 80202; 81003; 81015; 83605; 85025; 85652; 86140; 87040; 94640; 96365; 96367; 96375; A4216; G8978-GP-CH; G8979-GP-CH; G8980-GP-CH; G8987-GO-CH; G8988-GO-CH; G8989-GO-CH; J0692; J1650; J1815; J1885; J3370; J3490; J7050; J7620